=== PATIENT | male | born 1955 | race Caucasian/White ===

== ENCOUNTER 2016-10-31 19:59 | Inpatient (IN) | payer MEDICARE, MEDICAID ==
[~2016-10-31] VITALS: Ht 177.8 cm; Wt 77.3 kg
[~2016-10-31 19:59] MED LIST: CLON1 PO; DIVA500T35 PO; INSU100V12 SQ; LISI-661 PO; PALI156D IM; PANT40TA25 PO
[2016-10-31] MEDS ORDERED: FLUPH2.5I IM (20:33)
[2016-10-31] MEDS ORDERED: LORA0.5T2 PO (20:33)
[2016-10-31] MEDS ORDERED: OLAN10TA3 PO (20:33)
[2016-10-31] MEDS ORDERED: HYDR-3965 PO (20:33)
[2016-10-31] MEDS ORDERED: METF500T4 PO (20:33)
[2016-10-31] MEDS ORDERED: DIVA250T25 PO (20:33)
[2016-10-31] MEDS ORDERED: AMLO-512 PO (20:33)
[2016-10-31 20:36] LABS: GLUCOSE COMMENT 1 Doctor Notified; GLUCOSE,POINT OF CARE 419 MG/DL (70-110)
[2016-10-31] MEDS ORDERED: SODIUM CHLORIDE 0.9% 1,000 ML IV ONE (21:15)
[2016-10-31] MEDS ORDERED: INSULIN REGULAR, HUMAN 100 UNITS/ML IVP ONE (21:15)
[2016-10-31 21:35] LABS: BASOPHILS % (AUTO) 0.3 % (0.0-2.0); EOSINOPHILS % (AUTO) 7.8 % (1.0-6.0); HEMATOCRIT 34.5 % (41-53); HEMOGLOBIN 11.3 g/dL (13.5-17.5); LYMPHOCYTES # (AUTO) 1.8 K/uL (1.0-4.8); MEAN CORPUSCULAR HGB CONC 32.7 G/dL (31.0-37.0); MEAN CORPUSCULAR VOLUME 86 fL (80-100); MONOCYTES # (AUTO) 0.6 K/uL (0.1-1.0); MONOCYTES % (AUTO) 9.2 % (2.0-9.0); NEUTROPHILS # (AUTO) 3.5 K/uL (1.8-7.7); NEUTROPHILS % (AUTO) 54.7 % (40.0-70.0); PLATELET COUNT (AUTO) 269 K/uL (150-450); RED BLOOD CELL COUNT(AUTO) 4.02 MIL/uL (4.50-5.90); RED CELL DISTRIBUTION WIDTH 13.2 % (11.5-14.5); WHITE BLOOD COUNT (AUTO) 6.3 K/uL (4.5-11.0)
[2016-10-31 21:45] LABS: ALANINE AMINOTRANSFERASE 37 U/L (12-78); ALBUMIN 3.5 g/dL (3.4-5.0); ANION GAP 8 mmol/L (8-16); ASPARTATE AMINOTRANSFERASE 20 U/L (15-37); BILIRUBIN,TOTAL 0.2 mg/dL (0.1-1.0); CALCIUM, TOTAL 9.3 mg/dL (8.8-10.5); CARBON DIOXIDE 29 mmol/L (22-29); CHLORIDE 100 mmol/L (98-107); CREATININE 1.36 mg/dL (0.60-1.30); GLOMERULAR FILTR. RATE CALC 53 mL/min (>60); POTASSIUM 3.9 mmol/L (3.5-5.1); SODIUM SERUM 137 mmol/L (136-145); TOTAL PROTEIN, SERUM 7.5 g/dL (6.4-8.2); UREA NITROGEN, BLOOD 20 mg/dL (7-18)
[2016-10-31] MEDS ORDERED: ZOLPIDEM TARTRATE 10 MG TABLET PO PRN (22:15)
[2016-10-31] MEDS ORDERED: OMEPRAZOLE 20 MG CAPSULE PO ONE (22:45)
[2016-10-31 22:47] LABS: GLUCOSE,POINT OF CARE 100 MG/DL (70-110)
[2016-10-31] MEDS ORDERED: LORazepam 2 MG/ML VIAL IM ONE (23:30)
[2016-10-31] MEDS ORDERED: HALOPERIDOL LACTATE 5 MG/ML VIAL IM ONE (23:30)
[2016-10-31] MEDS ORDERED: DiphenhydrAMINE HCL 50 MG/ML VIAL IM ONE (23:30)
[2016-11-01 01:07] LABS: GLUCOSE,POINT OF CARE 182 MG/DL (70-110)
[2016-11-01 01:20] VITALS: BP 135/84
[2016-11-01 06:18] LABS: GLUCOSE,POINT OF CARE 274 MG/DL (70-110)
[2016-11-01 08:15] VITALS: BP 121/77
[2016-11-01] MEDS ORDERED: GuaiFENesin/D-METHORPHAN [SUGAR-FREE] 200-20MG/10 ML SYRUP UDCUP PO PRN (09:15)
[2016-11-01] MEDS ORDERED: HydrOXYzine PAMOATE 50 MG CAPSULE PO PRN (09:15)
[2016-11-01] MEDS ORDERED: MAGNESIUM HYDROXIDE SUSPENSION 30 ML UDCUP PO PRN (09:15)
[2016-11-01] MEDS ORDERED: ACETAMINOPHEN 325 MG TABLET PO PRN (09:15)
[2016-11-01] MEDS ORDERED: LOPERAMIDE HCL 2 MG CAPSULE PO PRN (09:15)
[2016-11-01] MEDS ORDERED: PROMETHAZINE HCL 25 MG TABLET PO PRN (09:15)
[2016-11-01] MEDS ORDERED: TUBERCULIN, PURIFIED PROTEIN DERIVATIVE 5 TU/0.1 ML SYG ID ONE (09:15)
[2016-11-01] MEDS ORDERED: MAG HYDROX/AL HYDROX/SIMETH ES 30 ML SUSPENSION UDCUP PO PRN (09:15)
[2016-11-01] MEDS ORDERED: INSULIN ASPART 100 UNITS/ML SQ PRN (09:30)
[2016-11-01] MEDS ORDERED: DEXTROSE 50%-WATER 25 GM/50 ML SYRINGE IVP PRN ×2 (09:30→11:45)
[2016-11-01] MEDS: LORazepam 2 MG TABLET PO PRN (10:22)
[2016-11-01] MEDS: OLANZapine 5 MG RAPDIS TABLET PO PRN (10:23)
[2016-11-01] MEDS ORDERED: DIVA500T35 PO (11:41)
[2016-11-01] MEDS ORDERED: INSULIN ASPART 100 UNITS/ML SQ ONE (11:45)
[2016-11-01 11:58] LABS: GLUCOSE COMMENT 1 Doctor Notified; GLUCOSE,POINT OF CARE 550 MG/DL (70-110)
[2016-11-01 16:09] VITALS: BP 119/79
[2016-11-01] MEDS: INSULIN ASPART 100 UNITS/ML SQ PRN (17:00)
[2016-11-01 17:37] LABS: GLUCOSE,POINT OF CARE 178 MG/DL (70-110)
[2016-11-01] MEDS: THIAMINE HCL 100 MG TABLET PO SCH (18:28)
[2016-11-01] MEDS: PANTOPRAZOLE SODIUM 40 MG DR TABLET PO SCH (18:28)
[2016-11-01] MEDS: MetFORMIN HCL 500 MG TABLET PO SCH (18:28)
[2016-11-01] MEDS: DIVALPROEX SODIUM 500 MG ER TABLET PO SCH (20:46)
[2016-11-01] MEDS ORDERED: OLANZapine 5 MG RAPDIS TABLET PO SCH (21:00)
[2016-11-02 05:42] LABS: GLUCOSE,POINT OF CARE 321 MG/DL (70-110)
[2016-11-02] MEDS: MetFORMIN HCL 500 MG TABLET PO SCH ×2 (06:25→16:52)
[2016-11-02] MEDS: INSULIN ASPART 100 UNITS/ML SQ PRN ×4 (07:02→20:50)
[2016-11-02 07:12] LABS: CHOL/HDL RATIO 3.8 (4.2-7.3)
[2016-11-02 07:16] LABS: HEMOGLOBIN A1C 12.1 % (4.5-6.2)
[2016-11-02] MEDS: THIAMINE HCL 100 MG TABLET PO SCH ×2 (08:53→16:52)
[2016-11-02] MEDS: MULTIVITAMINS WITH MINERALS, THERAPEUTIC TABLET PO SCH (08:53)
[2016-11-02] MEDS: NALTREXONE HCL 50 MG TABLET PO SCH (08:53)
[2016-11-02] MEDS: FOLIC ACID 1 MG TABLET PO SCH (08:53)
[2016-11-02] MEDS: PANTOPRAZOLE SODIUM 40 MG DR TABLET PO SCH ×2 (08:53→16:52)
[2016-11-02] MEDS: AmLODIPine BESYLATE 10 MG TABLET PO SCH (08:53)
[2016-11-02] MEDS: OLANZapine 5 MG RAPDIS TABLET PO PRN ×2 (10:26→14:32)
[2016-11-02] MEDS: LORazepam 2 MG TABLET PO PRN ×2 (10:26→14:32)
[2016-11-02 11:18] LABS: GLUCOSE,POINT OF CARE 200 MG/DL (70-110)
[2016-11-02 17:16] LABS: GLUCOSE COMMENT 1 Received Meds; GLUCOSE,POINT OF CARE 307 MG/DL (70-110)
[2016-11-02 18:38] VITALS: BP 145/81
[2016-11-02] MEDS: DIVALPROEX SODIUM 500 MG ER TABLET PO SCH (20:38)
[2016-11-02] MEDS: OLANZapine 10 MG RAPDIS TABLET PO SCH (20:38)
[2016-11-03 05:30] VITALS: BP 140/90
[2016-11-03 05:44] LABS: GLUCOSE,POINT OF CARE 256 MG/DL (70-110)
[2016-11-03] MEDS: MetFORMIN HCL 500 MG TABLET PO SCH ×2 (06:46→16:35)
[2016-11-03] MEDS: INSULIN ASPART 100 UNITS/ML SQ PRN ×4 (06:47→21:01)
[2016-11-03 07:38] LABS: GLUCOSE,POINT OF CARE 251 MG/DL (70-110)
[2016-11-03 08:15] VITALS: BP 145/74
[2016-11-03] MEDS: MULTIVITAMINS WITH MINERALS, THERAPEUTIC TABLET PO SCH (09:11)
[2016-11-03] MEDS: THIAMINE HCL 100 MG TABLET PO SCH ×2 (09:11→16:35)
[2016-11-03] MEDS: LORazepam 2 MG TABLET PO PRN ×2 (09:11→15:50)
[2016-11-03] MEDS: PANTOPRAZOLE SODIUM 40 MG DR TABLET PO SCH ×2 (09:12→16:35)
[2016-11-03] MEDS: AmLODIPine BESYLATE 10 MG TABLET PO SCH (09:12)
[2016-11-03] MEDS: FOLIC ACID 1 MG TABLET PO SCH (09:12)
[2016-11-03] MEDS: NALTREXONE HCL 50 MG TABLET PO SCH (09:12)
[2016-11-03 11:43] VITALS: BP 135/72
[2016-11-03 11:59] LABS: GLUCOSE,POINT OF CARE 169 MG/DL (70-110)
[2016-11-03] MEDS ORDERED: DIVA500T52 PO (15:33)
[2016-11-03] MEDS ORDERED: OLAN10TA22 PO (15:33)
[2016-11-03] MEDS ORDERED: NALT50 PO (15:33)
[2016-11-03 16:47] VITALS: BP 145/73
[2016-11-03 17:32] LABS: GLUCOSE COMMENT 1 Received Meds; GLUCOSE,POINT OF CARE 282 MG/DL (70-110)
[2016-11-03 20:46] LABS: GLUCOSE COMMENT 1 Received Meds; GLUCOSE,POINT OF CARE 229 MG/DL (70-110)
[2016-11-03] MEDS: DIVALPROEX SODIUM 500 MG ER TABLET PO SCH (20:58)
[2016-11-03] MEDS: OLANZapine 10 MG RAPDIS TABLET PO SCH (20:58)
[2016-11-04] MEDS: MetFORMIN HCL 500 MG TABLET PO SCH (06:32)
[2016-11-04] MEDS: INSULIN ASPART 100 UNITS/ML SQ PRN ×2 (06:51→11:39)
[2016-11-04 07:04] LABS: GLUCOSE,POINT OF CARE 248 MG/DL (70-110)
[2016-11-04] MEDS: AmLODIPine BESYLATE 10 MG TABLET PO SCH (08:11)
[2016-11-04] MEDS: PANTOPRAZOLE SODIUM 40 MG DR TABLET PO SCH (08:11)
[2016-11-04] MEDS: NALTREXONE HCL 50 MG TABLET PO SCH (08:11)
[2016-11-04] MEDS: THIAMINE HCL 100 MG TABLET PO SCH (08:12)
[2016-11-04] MEDS: MULTIVITAMINS WITH MINERALS, THERAPEUTIC TABLET PO SCH (08:12)
[2016-11-04] MEDS: FOLIC ACID 1 MG TABLET PO SCH (08:12)
[2016-11-04 08:30] VITALS: BP 150/96
[2016-11-04] MEDS ORDERED: LISINOPRIL 5 MG TABLET PO SCH (09:00)
[2016-11-04] MEDS ORDERED: LISI-660 PO (09:12)
[2016-11-04 13:53] LABS: GLUCOSE,POINT OF CARE 215 MG/DL (70-110)
[2016-11-05] MEDS ORDERED: SitaGLIPtin PHOSPHATE 25 MG TABLET PO SCH (09:00)
[2016-11-05] MEDS ORDERED: LinaGLIPtin 5 MG TABLET PO SCH (09:00)
== END 2016-11-04 13:45 | disposition home or self-care (01) | DRG 885 ==
LOC: EMS 20:01 → 3EX 23:46
PROVIDERS: ADMIT Psychiatry & Neurology Psychiatry; ATTEND Psychiatry & Neurology Psychiatry
PROC: HZ51ZZZ Individual Psychotherapy for Substance Abuse Treatment, Behavioral (ICD-10-PCS; principal; 2016-11-01)
DX: F25.9 Schizoaffective disorder, unspecified (principal); R45.851 Suicidal ideations; F31.9 Bipolar disorder, unspecified; K21.9 Gastro-esophageal reflux disease without esophagitis; F17.210 Nicotine dependence, cigarettes, uncomplicated; E11.65 Type 2 diabetes mellitus with hyperglycemia; E11.22 Type 2 diabetes mellitus with diabetic chronic kidney disease; N18.9 Chronic kidney disease, unspecified; I12.9 Hypertensive chronic kidney disease with stage 1 through stage 4 chronic kidney disease, or unspecified chronic kidney disease; M19.90 Unspecified osteoarthritis, unspecified site; D64.9 Anemia, unspecified; Z79.899 Other long term (current) drug therapy; Z91.19 Patient's noncompliance with other medical treatment and regimen; Z79.84 Long term (current) use of oral hypoglycemic drugs; Z88.0 Allergy status to penicillin; Z82.49 Family history of ischemic heart disease and other diseases of the circulatory system
CPT/HCPCS: 82948; 82962; 83036; 96361; 96372; 96374; 99285; 99406; G0480; J1200; J1630; J1815; J2060; J7030

== ENCOUNTER 2016-11-22 12:46 | Inpatient (IN) | payer MEDICARE, MEDICAID ==
[~2016-11-22] VITALS: Ht 172.7 cm; Wt 72.2 kg
[~2016-11-22 12:46] MED LIST changes: +AMLO-512 PO; -CLON1 PO; +DIVA500T52 PO; -INSU100V12 SQ; +LISI-660 PO; -LISI-661 PO; +METF500T4 PO; +NALT50 PO; +OLAN10TA22 PO; -PALI156D IM
[2016-11-22 13:12] LABS: GLUCOSE,POINT OF CARE 373 MG/DL (70-110)
[2016-11-22] MEDS ORDERED: DiphenhydrAMINE HCL 50 MG/ML VIAL IM ONE (14:15)
[2016-11-22] MEDS ORDERED: LORazepam 2 MG/ML VIAL IM ONE (14:15)
[2016-11-22] MEDS ORDERED: HALOPERIDOL LACTATE 5 MG/ML VIAL IM ONE (14:15)
[2016-11-22] MEDS ORDERED: ACETAMINOPHEN 325 MG TABLET PO PRN ×2 (14:45→15:30)
[2016-11-22] MEDS ORDERED: LOPERAMIDE HCL 2 MG CAPSULE PO PRN (14:45)
[2016-11-22] MEDS ORDERED: MAGNESIUM HYDROXIDE SUSPENSION 30 ML UDCUP PO PRN (14:45)
[2016-11-22] MEDS ORDERED: MAG HYDROX/AL HYDROX/SIMETH ES 30 ML SUSPENSION UDCUP PO PRN (14:45)
[2016-11-22 14:50] LABS: BASOPHILS % (AUTO) 0.3 % (0.0-2.0); EOSINOPHILS % (AUTO) 2.1 % (1.0-6.0); HEMATOCRIT 37.4 % (41-53); LYMPHOCYTES # (AUTO) 1.4 K/uL (1.0-4.8); LYMPHOCYTES % (AUTO) 22.1 % (22.0-44.0); MEAN CORPUSCULAR HEMOGLOBIN 27.6 pg (26.0-34.0); MEAN CORPUSCULAR HGB CONC 32.1 G/dL (31.0-37.0); MEAN CORPUSCULAR VOLUME 86 fL (80-100); MONOCYTES # (AUTO) 0.4 K/uL (0.1-1.0); MONOCYTES % (AUTO) 6.2 % (2.0-9.0); NEUTROPHILS # (AUTO) 4.2 K/uL (1.8-7.7); NEUTROPHILS % (AUTO) 69.3 % (40.0-70.0); PLATELET COUNT (AUTO) 242 K/uL (150-450); RED BLOOD CELL COUNT(AUTO) 4.36 MIL/uL (4.50-5.90); RED CELL DISTRIBUTION WIDTH 13.8 % (11.5-14.5); WHITE BLOOD COUNT (AUTO) 6.1 K/uL (4.5-11.0)
[2016-11-22 14:59] LABS: ANION GAP 9 mmol/L (8-16); CARBON DIOXIDE 27 mmol/L (22-29); CHLORIDE 99 mmol/L (98-107); CREATININE 1.34 mg/dL (0.60-1.30); GLOMERULAR FILTR. RATE CALC 54 mL/min (>60); POTASSIUM 3.7 mmol/L (3.5-5.1); SODIUM SERUM 135 mmol/L (136-145); UREA NITROGEN, BLOOD 17 mg/dL (7-18)
[2016-11-22 15:04] LABS: ALANINE AMINOTRANSFERASE 36 U/L (12-78); ALBUMIN 3.7 g/dL (3.4-5.0); ASPARTATE AMINOTRANSFERASE 24 U/L (15-37); BILIRUBIN,TOTAL 0.4 mg/dL (0.1-1.0); TOTAL PROTEIN, SERUM 7.3 g/dL (6.4-8.2)
[2016-11-22] MEDS ORDERED: ONDANSETRON HCL 4 MG/2 ML VIAL IVP PRN (15:30)
[2016-11-22 16:00] LABS: GLUCOSE,POINT OF CARE 288 MG/DL (70-110)
[2016-11-22] MEDS ORDERED: PNEUMOCOCCAL VACCINE POLYVALENT 0.5 ML VIAL [PPSV23] IM ONE (16:30)
[2016-11-22 17:16] VITALS: BP 148/93
[2016-11-22] MEDS ORDERED: DEXTROSE 50%-WATER 25 GM/50 ML SYRINGE IVP PRN (20:00)
[2016-11-22] MEDS ORDERED: OLANZapine 5 MG RAPDIS TABLET PO SCH (21:00)
[2016-11-22] MEDS: DIVALPROEX SODIUM 500 MG ER TABLET PO SCH (21:01)
[2016-11-22 21:12] LABS: GLUCOSE COMMENT 1 Received Meds; GLUCOSE,POINT OF CARE 227 MG/DL (70-110)
[2016-11-22] MEDS: INSULIN ASPART 100 UNITS/ML SQ PRN (21:16)
[2016-11-22 22:57] LABS: APPEARANCE,URINE CLEAR (CLEAR); GLUCOSE, URINE (UA) >=1000 mg/dL (NEGATIVE); KETONES,URINE TRACE mg/dL (NEGATIVE); LEUKOCYTE ESTERASE ,URINE NEGATIVE (NEGATIVE); OCCULT BLOOD,URINE NEGATIVE (NEGATIVE); PROTEIN,URINE NEGATIVE (NEGATIVE)
[2016-11-22 23:00] LABS: ADD UA MICROSCOPIC YES
[2016-11-22 23:07] LABS: RBC,URINE 0-2 /HPF (0-2); SQUAMOUS EPITHELIAL CELL,UR Rare /LPF (None Seen)
[2016-11-23 05:52] LABS: GLUCOSE,POINT OF CARE 267 MG/DL (70-110)
[2016-11-23] MEDS: INSULIN ASPART 100 UNITS/ML SQ PRN ×4 (06:52→21:08)
[2016-11-23] MEDS: MetFORMIN HCL 500 MG TABLET PO SCH ×2 (06:54→16:21)
[2016-11-23 07:12] LABS: BASOPHILS % (AUTO) 0.3 % (0.0-2.0); EOSINOPHILS % (AUTO) 3.9 % (1.0-6.0); HEMATOCRIT 38.1 % (41-53); HEMOGLOBIN 12.2 g/dL (13.5-17.5); LYMPHOCYTES # (AUTO) 1.7 K/uL (1.0-4.8); LYMPHOCYTES % (AUTO) 27.5 % (22.0-44.0); MEAN CORPUSCULAR HEMOGLOBIN 27.6 pg (26.0-34.0); MEAN CORPUSCULAR HGB CONC 32.1 G/dL (31.0-37.0); MEAN CORPUSCULAR VOLUME 86 fL (80-100); MONOCYTES # (AUTO) 0.4 K/uL (0.1-1.0); MONOCYTES % (AUTO) 6.2 % (2.0-9.0); NEUTROPHILS # (AUTO) 3.8 K/uL (1.8-7.7); NEUTROPHILS % (AUTO) 62.1 % (40.0-70.0); PLATELET COUNT (AUTO) 224 K/uL (150-450); RED BLOOD CELL COUNT(AUTO) 4.43 MIL/uL (4.50-5.90); RED CELL DISTRIBUTION WIDTH 13.5 % (11.5-14.5); WHITE BLOOD COUNT (AUTO) 6.1 K/uL (4.5-11.0)
[2016-11-23 07:37] LABS: ALANINE AMINOTRANSFERASE 37 U/L (12-78); ALBUMIN 3.5 g/dL (3.4-5.0); ANION GAP 12 mmol/L (8-16); ASPARTATE AMINOTRANSFERASE 34 U/L (15-37); BILIRUBIN,TOTAL 0.6 mg/dL (0.1-1.0); CALCIUM, TOTAL 9.1 mg/dL (8.8-10.5); CARBON DIOXIDE 24 mmol/L (22-29); CHLORIDE 100 mmol/L (98-107); CREATININE 1.28 mg/dL (0.60-1.30); GLOMERULAR FILTR. RATE CALC 57 mL/min (>60); POTASSIUM 3.6 mmol/L (3.5-5.1); SODIUM SERUM 136 mmol/L (136-145); TOTAL PROTEIN, SERUM 7.2 g/dL (6.4-8.2); UREA NITROGEN, BLOOD 18 mg/dL (7-18)
[2016-11-23 07:40] LABS: VALPROIC ACID < 3 mcg/mL (50-100)
[2016-11-23] MEDS: LISINOPRIL 5 MG TABLET PO SCH (08:11)
[2016-11-23] MEDS: PANTOPRAZOLE SODIUM 40 MG DR TABLET PO SCH ×2 (08:12→16:21)
[2016-11-23] MEDS: AmLODIPine BESYLATE 10 MG TABLET PO SCH (08:12)
[2016-11-23 08:17] VITALS: BP 153/101
[2016-11-23] MEDS: LORazepam 2 MG TABLET PO PRN ×2 (11:07→15:12)
[2016-11-23] MEDS: OLANZapine 5 MG RAPDIS TABLET PO PRN ×2 (11:08→15:12)
[2016-11-23 11:11] LABS: GLUCOSE,POINT OF CARE 224 MG/DL (70-110)
[2016-11-23 16:37] VITALS: BP 130/79
[2016-11-23 16:57] LABS: GLUCOSE,POINT OF CARE 215 MG/DL (70-110)
[2016-11-23] MEDS ORDERED: CloNIDine HCL 0.1 MG TABLET PO PRN (17:30)
[2016-11-23] MEDS: OLANZapine 10 MG RAPDIS TABLET PO SCH (20:27)
[2016-11-23] MEDS: DIVALPROEX SODIUM 500 MG ER TABLET PO SCH (20:27)
[2016-11-23 20:52] LABS: GLUCOSE,POINT OF CARE 180 MG/DL (70-110)
[2016-11-24 05:52] LABS: GLUCOSE,POINT OF CARE 266 MG/DL (70-110)
[2016-11-24] MEDS: MetFORMIN HCL 500 MG TABLET PO SCH ×2 (07:13→17:53)
[2016-11-24] MEDS: INSULIN ASPART 100 UNITS/ML SQ PRN ×3 (07:14→18:16)
[2016-11-24] MEDS: NALTREXONE HCL 50 MG TABLET PO SCH (08:04)
[2016-11-24] MEDS: LISINOPRIL 5 MG TABLET PO SCH (08:04)
[2016-11-24] MEDS: AmLODIPine BESYLATE 10 MG TABLET PO SCH (08:04)
[2016-11-24] MEDS: PANTOPRAZOLE SODIUM 40 MG DR TABLET PO SCH ×2 (08:04→17:53)
[2016-11-24 08:15] VITALS: BP 124/83
[2016-11-24] MEDS: LORazepam 2 MG TABLET PO PRN (08:54)
[2016-11-24] MEDS: OLANZapine 5 MG RAPDIS TABLET PO PRN (08:54)
[2016-11-24] MEDS ORDERED: LORazepam 2 MG/ML VIAL IM ONE (10:00)
[2016-11-24] MEDS ORDERED: DiphenhydrAMINE HCL 50 MG/ML VIAL IM ONE (10:00)
[2016-11-24 15:31] LABS: GLUCOSE,POINT OF CARE 169 MG/DL (70-110)
[2016-11-24 17:27] LABS: GLUCOSE COMMENT 1 Received Meds; GLUCOSE,POINT OF CARE 160 MG/DL (70-110)
[2016-11-24] MEDS: BACITRACIN 28.4 GM OINTMENT TP SCH (18:01)
[2016-11-24 20:37] LABS: GLUCOSE,POINT OF CARE 154 MG/DL (70-110)
[2016-11-24] MEDS: DIVALPROEX SODIUM 500 MG ER TABLET PO SCH (21:00)
[2016-11-24] MEDS: OLANZapine 10 MG RAPDIS TABLET PO SCH (21:00)
[2016-11-25 06:07] LABS: GLUCOSE,POINT OF CARE 189 MG/DL (70-110)
[2016-11-25] MEDS: MetFORMIN HCL 500 MG TABLET PO SCH ×2 (06:50→18:52)
[2016-11-25] MEDS: INSULIN ASPART 100 UNITS/ML SQ PRN ×3 (06:56→18:47)
[2016-11-25] MEDS: LISINOPRIL 5 MG TABLET PO SCH (08:16)
[2016-11-25] MEDS: PANTOPRAZOLE SODIUM 40 MG DR TABLET PO SCH ×2 (08:16→18:52)
[2016-11-25] MEDS: NALTREXONE HCL 50 MG TABLET PO SCH (08:16)
[2016-11-25] MEDS: LinaGLIPtin 5 MG TABLET PO SCH (08:16)
[2016-11-25] MEDS: AmLODIPine BESYLATE 10 MG TABLET PO SCH (08:16)
[2016-11-25] MEDS: LORazepam 2 MG TABLET PO PRN ×2 (08:18→13:15)
[2016-11-25 08:30] VITALS: BP 120/76
[2016-11-25] MEDS: BACITRACIN 28.4 GM OINTMENT TP SCH ×2 (09:00→18:52)
[2016-11-25 11:12] LABS: GLUCOSE COMMENT 1 Received Meds; GLUCOSE,POINT OF CARE 222 MG/DL (70-110)
[2016-11-25 19:15] VITALS: BP 124/71
[2016-11-25 19:31] LABS: GLUCOSE,POINT OF CARE 279 MG/DL (70-110)
[2016-11-25] MEDS: DIVALPROEX SODIUM 500 MG ER TABLET PO SCH (21:01)
[2016-11-25] MEDS: OLANZapine 10 MG RAPDIS TABLET PO SCH (21:01)
[2016-11-25 22:56] LABS: GLUCOSE,POINT OF CARE 126 MG/DL (70-110)
[2016-11-25] MEDS: ZOLPIDEM TARTRATE 10 MG TABLET PO PRN (23:21)
[2016-11-26 01:20] VITALS: BP 141/79
[2016-11-26 06:17] LABS: GLUCOSE COMMENT 1 Received Meds; GLUCOSE,POINT OF CARE 183 MG/DL (70-110)
[2016-11-26] MEDS: MetFORMIN HCL 500 MG TABLET PO SCH ×2 (06:32→16:43)
[2016-11-26] MEDS: INSULIN ASPART 100 UNITS/ML SQ PRN ×4 (06:49→21:41)
[2016-11-26] MEDS: PANTOPRAZOLE SODIUM 40 MG DR TABLET PO SCH ×2 (07:37→16:43)
[2016-11-26] MEDS: AmLODIPine BESYLATE 10 MG TABLET PO SCH (07:37)
[2016-11-26] MEDS: NALTREXONE HCL 50 MG TABLET PO SCH (07:37)
[2016-11-26] MEDS: LISINOPRIL 5 MG TABLET PO SCH (07:37)
[2016-11-26] MEDS: LinaGLIPtin 5 MG TABLET PO SCH (07:38)
[2016-11-26] MEDS: BACITRACIN 28.4 GM OINTMENT TP SCH ×2 (07:38→16:42)
[2016-11-26 08:01] VITALS: BP 128/69
[2016-11-26 11:17] LABS: GLUCOSE,POINT OF CARE 211 MG/DL (70-110)
[2016-11-26] MEDS: LORazepam 2 MG TABLET PO PRN (13:11)
[2016-11-26 17:18] VITALS: BP 115/78
[2016-11-26 17:27] LABS: GLUCOSE,POINT OF CARE 142 MG/DL (70-110)
[2016-11-26] MEDS: OLANZapine 10 MG RAPDIS TABLET PO SCH (20:54)
[2016-11-26] MEDS: DIVALPROEX SODIUM 500 MG ER TABLET PO SCH (20:54)
[2016-11-26 21:47] LABS: GLUCOSE COMMENT 1 FASTING; GLUCOSE,POINT OF CARE 174 MG/DL (70-110)
[2016-11-27 00:24] VITALS: BP 127/91
[2016-11-27] MEDS: ZOLPIDEM TARTRATE 10 MG TABLET PO PRN (01:01)
[2016-11-27] MEDS: MetFORMIN HCL 500 MG TABLET PO SCH ×2 (06:23→17:40)
[2016-11-27 06:42] LABS: GLUCOSE COMMENT 1 Received Meds; GLUCOSE,POINT OF CARE 170 MG/DL (70-110)
[2016-11-27] MEDS: INSULIN ASPART 100 UNITS/ML SQ PRN ×4 (07:11→20:38)
[2016-11-27] MEDS: NALTREXONE HCL 50 MG TABLET PO SCH (08:03)
[2016-11-27] MEDS: LinaGLIPtin 5 MG TABLET PO SCH (08:04)
[2016-11-27] MEDS: AmLODIPine BESYLATE 10 MG TABLET PO SCH (08:04)
[2016-11-27] MEDS: PANTOPRAZOLE SODIUM 40 MG DR TABLET PO SCH ×2 (08:04→17:08)
[2016-11-27] MEDS: LISINOPRIL 5 MG TABLET PO SCH (08:04)
[2016-11-27] MEDS: LORazepam 2 MG TABLET PO PRN (08:12)
[2016-11-27] MEDS: OLANZapine 5 MG RAPDIS TABLET PO PRN (08:12)
[2016-11-27] MEDS: BACITRACIN 28.4 GM OINTMENT TP SCH ×2 (08:13→17:08)
[2016-11-27 08:31] VITALS: BP 146/98
[2016-11-27 11:11] LABS: GLUCOSE,POINT OF CARE 162 MG/DL (70-110)
[2016-11-27 17:01] VITALS: BP 137/93
[2016-11-27 17:47] LABS: GLUCOSE,POINT OF CARE 201 MG/DL (70-110)
[2016-11-27] MEDS: OLANZapine 10 MG RAPDIS TABLET PO SCH (20:23)
[2016-11-27] MEDS: DIVALPROEX SODIUM 500 MG ER TABLET PO SCH (20:23)
[2016-11-27 20:32] LABS: GLUCOSE COMMENT 1 Received Meds; GLUCOSE,POINT OF CARE 156 MG/DL (70-110)
[2016-11-28 05:57] LABS: GLUCOSE,POINT OF CARE 142 MG/DL (70-110)
[2016-11-28 06:16] VITALS: BP 130/77
[2016-11-28] MEDS: MetFORMIN HCL 500 MG TABLET PO SCH ×2 (06:36→17:32)
[2016-11-28] MEDS: INSULIN ASPART 100 UNITS/ML SQ PRN ×4 (07:08→20:50)
[2016-11-28 08:01] VITALS: BP 163/84
[2016-11-28] MEDS: PANTOPRAZOLE SODIUM 40 MG DR TABLET PO SCH ×2 (08:02→16:01)
[2016-11-28] MEDS: LISINOPRIL 5 MG TABLET PO SCH (08:02)
[2016-11-28] MEDS: AmLODIPine BESYLATE 10 MG TABLET PO SCH (08:02)
[2016-11-28] MEDS: BACITRACIN 28.4 GM OINTMENT TP SCH ×2 (08:02→16:00)
[2016-11-28] MEDS: LinaGLIPtin 5 MG TABLET PO SCH (08:02)
[2016-11-28] MEDS: DIVALPROEX SODIUM 500 MG ER TABLET PO SCH ×2 (08:02→20:08)
[2016-11-28] MEDS: NALTREXONE HCL 50 MG TABLET PO SCH (08:02)
[2016-11-28] MEDS: OLANZapine 5 MG RAPDIS TABLET PO SCH (08:02)
[2016-11-28 11:27] LABS: GLUCOSE,POINT OF CARE 147 MG/DL (70-110)
[2016-11-28] MEDS: OLANZapine 5 MG RAPDIS TABLET PO PRN (16:01)
[2016-11-28 16:08] LABS: GLUCOSE COMMENT 1 Received Meds; GLUCOSE,POINT OF CARE 184 MG/DL (70-110)
[2016-11-28 16:28] VITALS: BP 117/84
[2016-11-28] MEDS: OLANZapine 10 MG RAPDIS TABLET PO SCH (20:08)
[2016-11-28 20:27] LABS: GLUCOSE COMMENT 1 Received Meds; GLUCOSE,POINT OF CARE 157 MG/DL (70-110)
[2016-11-29] MEDS: ZOLPIDEM TARTRATE 10 MG TABLET PO PRN (00:36)
[2016-11-29 00:43] VITALS: BP 136/77
[2016-11-29 05:28] LABS: GLUCOSE COMMENT 1 Received Meds; GLUCOSE,POINT OF CARE 151 MG/DL (70-110)
[2016-11-29] MEDS: MetFORMIN HCL 500 MG TABLET PO SCH ×2 (07:28→18:39)
[2016-11-29] MEDS: INSULIN ASPART 100 UNITS/ML SQ PRN ×3 (07:30→21:27)
[2016-11-29 08:15] VITALS: BP 139/70
[2016-11-29] MEDS: NALTREXONE HCL 50 MG TABLET PO SCH (08:25)
[2016-11-29] MEDS: AmLODIPine BESYLATE 10 MG TABLET PO SCH (08:25)
[2016-11-29] MEDS: DIVALPROEX SODIUM 500 MG ER TABLET PO SCH ×2 (08:25→20:53)
[2016-11-29] MEDS: LISINOPRIL 5 MG TABLET PO SCH (08:25)
[2016-11-29] MEDS: LinaGLIPtin 5 MG TABLET PO SCH (08:25)
[2016-11-29] MEDS: PANTOPRAZOLE SODIUM 40 MG DR TABLET PO SCH ×2 (08:25→16:18)
[2016-11-29] MEDS: OLANZapine 5 MG RAPDIS TABLET PO SCH (08:26)
[2016-11-29] MEDS: LORazepam 2 MG TABLET PO PRN (10:12)
[2016-11-29] MEDS: BACITRACIN 28.4 GM OINTMENT TP SCH ×2 (10:14→16:18)
[2016-11-29 11:43] LABS: GLUCOSE,POINT OF CARE 306 MG/DL (70-110)
[2016-11-29] MEDS ORDERED: HALOPERIDOL LACTATE 5 MG/ML VIAL IM ONE (13:15)
[2016-11-29] MEDS ORDERED: DiphenhydrAMINE HCL 50 MG/ML VIAL IM ONE (13:15)
[2016-11-29] MEDS ORDERED: LORazepam 2 MG/ML VIAL IM ONE (13:15)
[2016-11-29 16:07] LABS: GLUCOSE COMMENT 1 Received Meds; GLUCOSE,POINT OF CARE 71 MG/DL (70-110)
[2016-11-29 16:30] VITALS: BP 124/72
[2016-11-29] MEDS ORDERED: DIVA500T52 PO ×2 (17:37)
[2016-11-29] MEDS ORDERED: OLAN10TA22 PO (17:37)
[2016-11-29] MEDS ORDERED: NALT50 PO (17:37)
[2016-11-29] MEDS: OLANZapine 10 MG RAPDIS TABLET PO SCH (20:53)
[2016-11-29 21:08] LABS: GLUCOSE COMMENT 1 Received Meds; GLUCOSE,POINT OF CARE 233 MG/DL (70-110)
[2016-11-30 03:25] VITALS: BP 132/91
[2016-11-30] MEDS: LORazepam 2 MG TABLET PO PRN ×2 (03:28→08:37)
[2016-11-30 05:33] LABS: GLUCOSE COMMENT 1 Received Meds; GLUCOSE,POINT OF CARE 145 MG/DL (70-110)
[2016-11-30] MEDS: INSULIN ASPART 100 UNITS/ML SQ PRN (06:58)
[2016-11-30] MEDS: MetFORMIN HCL 500 MG TABLET PO SCH (07:17)
[2016-11-30 08:30] VITALS: BP 125/74
[2016-11-30] MEDS: AmLODIPine BESYLATE 10 MG TABLET PO SCH (08:37)
[2016-11-30] MEDS: OLANZapine 5 MG RAPDIS TABLET PO SCH (08:37)
[2016-11-30] MEDS: PANTOPRAZOLE SODIUM 40 MG DR TABLET PO SCH ×2 (08:37→16:49)
[2016-11-30] MEDS: DIVALPROEX SODIUM 500 MG ER TABLET PO SCH (08:37)
[2016-11-30] MEDS: OLANZapine 5 MG RAPDIS TABLET PO PRN (08:38)
[2016-11-30] MEDS: LISINOPRIL 5 MG TABLET PO SCH (08:39)
[2016-11-30] MEDS: NALTREXONE HCL 50 MG TABLET PO SCH (08:39)
[2016-11-30] MEDS: LinaGLIPtin 5 MG TABLET PO SCH (08:40)
[2016-11-30] MEDS: BACITRACIN 28.4 GM OINTMENT TP SCH ×2 (08:40→16:50)
[2016-11-30] MEDS ORDERED: LISI-660 PO (08:58)
[2016-11-30] MEDS ORDERED: LINA5TAB PO (09:02)
[2016-11-30 11:28] LABS: GLUCOSE,POINT OF CARE 136 MG/DL (70-110)
[2016-11-30 17:08] LABS: GLUCOSE COMMENT 1 Received Meds; GLUCOSE,POINT OF CARE 230 MG/DL (70-110)
== END 2016-11-30 17:30 | disposition home or self-care (01) | DRG 885 ==
LOC: EMS 12:49 → EEVIPCON 12:49 → 3EX 15:47
PROVIDERS: ADMIT Psychiatry & Neurology Psychiatry; ATTEND Psychiatry & Neurology Psychiatry
DX: F25.9 Schizoaffective disorder, unspecified (principal); R45.851 Suicidal ideations; D64.9 Anemia, unspecified; E11.65 Type 2 diabetes mellitus with hyperglycemia; I10 Essential (primary) hypertension; I25.10 Atherosclerotic heart disease of native coronary artery without angina pectoris; J44.9 Chronic obstructive pulmonary disease, unspecified; K21.9 Gastro-esophageal reflux disease without esophagitis; F12.21 Cannabis dependence, in remission; F15.21 Other stimulant dependence, in remission; R82.4 Acetonuria; L21.9 Seborrheic dermatitis, unspecified; F31.60 Bipolar disorder, current episode mixed, unspecified; Z22.322 Carrier or suspected carrier of Methicillin resistant Staphylococcus aureus; Z79.84 Long term (current) use of oral hypoglycemic drugs; Z88.0 Allergy status to penicillin; Z91.19 Patient's noncompliance with other medical treatment and regimen; Z79.899 Other long term (current) drug therapy; Z72.89 Other problems related to lifestyle; Z87.891 Personal history of nicotine dependence; Z80.1 Family history of malignant neoplasm of trachea, bronchus and lung; Z82.5 Family history of asthma and other chronic lower respiratory diseases; Z83.3 Family history of diabetes mellitus; Z82.49 Family history of ischemic heart disease and other diseases of the circulatory system; Z81.1 Family history of alcohol abuse and dependence
CPT/HCPCS: 82962; 83036; 87081; 96372; 99285; G0480; J1200; J1630; J2060; J3230

== ENCOUNTER 2017-07-31 16:43 | Inpatient (IN) | payer MEDICARE, MEDICAID ==
[~2017-07-31] VITALS: Ht 177.8 cm; Wt 72.5 kg
[~2017-07-31 16:43] MED LIST changes: -DIVA500T35 PO; +LINA5TAB PO; -NALT50 PO; +NALT50TA6 PO
[2017-07-31] MEDS ORDERED: DiphenhydrAMINE HCL 50 MG/ML VIAL IM ONE (17:30)
[2017-07-31] MEDS ORDERED: LORazepam 2 MG/ML VIAL IM ONE (17:30)
[2017-07-31 17:33] LABS: BASOPHILS # (AUTO) 0.01 K/uL (0.00-0.20); BASOPHILS % (AUTO) 0.1 % (0.0-2.0); EOSINOPHILS # (AUTO) 0.35 K/uL (0.00-0.70); EOSINOPHILS % (AUTO) 6.15 % (1.0-6.0); HEMATOCRIT 29.5 % (41-53); HEMOGLOBIN 9.2 g/dL (13.5-17.5); LYMPHOCYTES # (AUTO) 2.2 K/uL (1.0-4.8); LYMPHOCYTES % (AUTO) 38.6 % (22.0-44.0); MEAN CORPUSCULAR HEMOGLOBIN 23.9 pg (26.0-34.0); MEAN CORPUSCULAR HGB CONC 31.1 G/dL (31.0-37.0); MEAN CORPUSCULAR VOLUME 77 fL (80-100); MONOCYTES # (AUTO) 0.4 K/uL (0.1-1.0); NEUTROPHILS # (AUTO) 2.8 K/uL (1.8-7.7); NEUTROPHILS % (AUTO) 48.1 % (40.0-70.0); PLATELET COUNT (AUTO) 194 K/uL (150-450); RED BLOOD CELL COUNT(AUTO) 3.85 MIL/uL (4.50-5.90); RED CELL DISTRIBUTION WIDTH 17.1 % (11.5-14.5)
[2017-07-31 17:34] LABS: ANION GAP 10 mmol/L (8-16); CALCIUM, TOTAL 9.2 mg/dL (8.8-10.5); CARBON DIOXIDE 25 mmol/L (22-29); CHLORIDE 99 mmol/L (98-107); CREATININE 1.57 mg/dL (0.60-1.30); GLOMERULAR FILTR. RATE CALC 45 mL/min (>60); GLUCOSE,RANDOM 131 mg/dL (70-110); POTASSIUM 3.8 mmol/L (3.5-5.1); SODIUM SERUM 134 mmol/L (136-145); UREA NITROGEN, BLOOD 18 mg/dL (7-18)
[2017-07-31 17:40] LABS: ALANINE AMINOTRANSFERASE 22 U/L (12-78); ALBUMIN 3.5 g/dL (3.4-5.0); ALKALINE PHOSPHATASE 86 U/L (46-116); ASPARTATE AMINOTRANSFERASE 14 U/L (15-37); BILIRUBIN,TOTAL 0.1 mg/dL (0.1-1.0); TOTAL PROTEIN, SERUM 7.5 g/dL (6.4-8.2); VALPROIC ACID 54 mcg/mL (50-100)
[2017-07-31] MEDS ORDERED: HALOPERIDOL 5 MG TABLET PO ONE (17:45)
[2017-07-31] MEDS ORDERED: DiphenhydrAMINE HCL 25 MG CAPSULE PO ONE (17:45)
[2017-07-31] MEDS ORDERED: LORazepam 2 MG TABLET PO ONE ×2 (17:45→21:30)
[2017-07-31 18:32] LABS: AMPHET/METH SCREEN,URINE NEGATIVE (NEGATIVE); BARBITURATE SCREEN, URINE NEGATIVE (NEGATIVE); BENZODIAZEPINES SCREEN,URINE NEGATIVE (NEGATIVE); CANNABINOID SCREEN,URINE NEGATIVE (NEGATIVE); COCAINE SCREEN,URINE NEGATIVE (NEGATIVE); METHADONE SCREEN, URINE NEGATIVE (NEGATIVE); OPIATE SCREEN,URINE NEGATIVE (NEGATIVE)
[2017-07-31 18:33] LABS: PHENCYCLIDINE SCREEN,URINE NEGATIVE (NEGATIVE)
[2017-07-31] MEDS: DIVALPROEX SODIUM 500 MG ER TABLET PO SCH (20:50)
[2017-07-31] MEDS: OLANZapine 10 MG RAPDIS TABLET PO SCH (20:50)
[2017-07-31] MEDS: ZOLPIDEM TARTRATE 10 MG TABLET PO PRN (21:22)
[2017-08-01 08:55] LABS: CHOL/HDL RATIO 2.8 (4.2-7.3)
[2017-08-01] MEDS: NALTREXONE HCL 50 MG TABLET PO SCH (09:12)
[2017-08-01] MEDS: OLANZapine 5 MG RAPDIS TABLET PO PRN ×2 (09:20→16:08)
[2017-08-01] MEDS: LORazepam 2 MG TABLET PO PRN ×2 (10:00→16:08)
[2017-08-01] MEDS ORDERED: TUBERCULIN, PURIFIED PROTEIN DERIVATIVE 5 TU/0.1 ML SYG ID ONE (16:00)
[2017-08-01] MEDS ORDERED: GuaiFENesin/D-METHORPHAN [SUGAR-FREE] 200-20MG/10 ML SYRUP UDCUP PO PRN (16:00)
[2017-08-01] MEDS ORDERED: PROMETHAZINE HCL 25 MG TABLET PO PRN (16:00)
[2017-08-01] MEDS ORDERED: MAGNESIUM HYDROXIDE SUSPENSION 30 ML UDCUP PO PRN (16:00)
[2017-08-01] MEDS ORDERED: LOPERAMIDE HCL 2 MG CAPSULE PO PRN (16:00)
[2017-08-01 16:06] VITALS: BP 119/73
[2017-08-01] MEDS: THIAMINE HCL 100 MG TABLET PO SCH (16:08)
[2017-08-01] MEDS: PANTOPRAZOLE SODIUM 40 MG DR TABLET PO SCH (17:00)
[2017-08-01] MEDS: MetFORMIN HCL 500 MG TABLET PO SCH (17:30)
[2017-08-01 20:59] LABS: GLUCOMETER DEV NAME(LOC) 3EC; GLUCOSE,POINT OF CARE 156 MG/DL (70-110)
[2017-08-01] MEDS: DIVALPROEX SODIUM 500 MG ER TABLET PO SCH (21:00)
[2017-08-01] MEDS: OLANZapine 10 MG RAPDIS TABLET PO SCH (21:00)
[2017-08-02] MEDS: ZOLPIDEM TARTRATE 10 MG TABLET PO PRN (01:44)
[2017-08-02 06:12] LABS: GLUCOMETER DEV NAME(LOC) 3EC; GLUCOSE,POINT OF CARE 147 MG/DL (70-110)
[2017-08-02] MEDS: MetFORMIN HCL 500 MG TABLET PO SCH ×2 (06:59→18:34)
[2017-08-02 08:00] VITALS: BP 137/91
[2017-08-02 09:18] LABS: GLUCOSE,POINT OF CARE 139 MG/DL (70-110)
[2017-08-02] MEDS: MULTIVITAMINS WITH MINERALS, THERAPEUTIC TABLET PO SCH (09:38)
[2017-08-02] MEDS: HydrOXYzine PAMOATE 50 MG CAPSULE PO PRN ×2 (09:38→13:49)
[2017-08-02] MEDS: MAG HYDROX/AL HYDROX/SIMETH ES 30 ML SUSPENSION UDCUP PO PRN (09:38)
[2017-08-02] MEDS: LinaGLIPtin 5 MG TABLET PO SCH (09:38)
[2017-08-02] MEDS: THIAMINE HCL 100 MG TABLET PO SCH ×2 (09:38→18:34)
[2017-08-02] MEDS: LISINOPRIL 5 MG TABLET PO SCH (09:38)
[2017-08-02] MEDS: OLANZapine 5 MG RAPDIS TABLET PO PRN ×2 (09:38→13:49)
[2017-08-02] MEDS: PANTOPRAZOLE SODIUM 40 MG DR TABLET PO SCH ×2 (09:38→18:34)
[2017-08-02] MEDS: FOLIC ACID 1 MG TABLET PO SCH (09:38)
[2017-08-02] MEDS: AmLODIPine BESYLATE 10 MG TABLET PO SCH (09:38)
[2017-08-02] MEDS: LORazepam 2 MG TABLET PO PRN ×2 (09:38→13:49)
[2017-08-02] MEDS ORDERED: INFLUENZA VIRUS VACCINE QVS 2017-18 (3YR+)/PF 60 MCG/0.5 ML SYRINGE IM ONE (09:45)
[2017-08-02] MEDS: NALTREXONE HCL 50 MG TABLET PO SCH (11:35)
[2017-08-02] MEDS ORDERED: GLUCAGON,HUMAN RECOMBINANT 1 MG VIAL IM PRN (12:00)
[2017-08-02] MEDS: ACETAMINOPHEN 325 MG TABLET PO PRN (13:35)
[2017-08-02] MEDS: OLANZapine 10 MG RAPDIS TABLET PO SCH (20:49)
[2017-08-02] MEDS: DIVALPROEX SODIUM 500 MG ER TABLET PO SCH (20:49)
[2017-08-02 20:52] LABS: GLUCOMETER DEV NAME(LOC) 3EC; GLUCOSE,POINT OF CARE 139 MG/DL (70-110)
[2017-08-03] MEDS: ACETAMINOPHEN 325 MG TABLET PO PRN ×2 (05:03→11:32)
[2017-08-03 05:05] VITALS: BP 102/70
[2017-08-03] MEDS ORDERED: PNEUMOCOCCAL VACCINE POLYVALENT 0.5 ML VIAL [PPSV23] IM ONE (05:30)
[2017-08-03 05:58] LABS: GLUCOMETER DEV NAME(LOC) 3EC; GLUCOSE,POINT OF CARE 208 MG/DL (70-110)
[2017-08-03] MEDS: INSULIN ASPART 100 UNITS/ML SQ PRN ×2 (06:47→17:19)
[2017-08-03] MEDS: MetFORMIN HCL 500 MG TABLET PO SCH ×2 (06:47→16:23)
[2017-08-03 07:18] LABS: HEMOGLOBIN A1C 8.1 % (4.5-6.2)
[2017-08-03] MEDS: OLANZapine 5 MG RAPDIS TABLET PO PRN ×3 (07:21→15:48)
[2017-08-03] MEDS: THIAMINE HCL 100 MG TABLET PO SCH ×2 (07:21→16:17)
[2017-08-03] MEDS: LISINOPRIL 5 MG TABLET PO SCH (07:21)
[2017-08-03] MEDS: LORazepam 2 MG TABLET PO PRN ×3 (07:21→19:30)
[2017-08-03] MEDS: MULTIVITAMINS WITH MINERALS, THERAPEUTIC TABLET PO SCH (07:21)
[2017-08-03] MEDS: LinaGLIPtin 5 MG TABLET PO SCH (07:21)
[2017-08-03] MEDS: FOLIC ACID 1 MG TABLET PO SCH (07:21)
[2017-08-03] MEDS: HydrOXYzine PAMOATE 50 MG CAPSULE PO PRN ×2 (07:21→11:27)
[2017-08-03] MEDS: NALTREXONE HCL 50 MG TABLET PO SCH (07:21)
[2017-08-03] MEDS: AmLODIPine BESYLATE 10 MG TABLET PO SCH (07:21)
[2017-08-03] MEDS: PANTOPRAZOLE SODIUM 40 MG DR TABLET PO SCH ×2 (07:22→16:17)
[2017-08-03 07:35] LABS: CREATINE KINASE MB 2.6 ng/mL (0-5); CREATINE KINASE, TOTAL 111 U/L (39-308)
[2017-08-03 08:38] LABS: FOLATE SERUM 19.3 ng/mL (5.4-)
[2017-08-03 11:58] LABS: GLUCOMETER DEV NAME(LOC) 3EC; GLUCOSE,POINT OF CARE 165 MG/DL (70-110)
[2017-08-03 16:25] VITALS: BP 102/54
[2017-08-03 17:22] LABS: GLUCOMETER DEV NAME(LOC) 3EC; GLUCOSE,POINT OF CARE 249 MG/DL (70-110)
[2017-08-03 19:18] VITALS: BP 118/72
[2017-08-03] MEDS: OLANZapine 10 MG RAPDIS TABLET PO SCH (20:32)
[2017-08-03] MEDS: LITHIUM CARBONATE 300 MG CAPSULE PO SCH (20:35)
[2017-08-03] MEDS: DIVALPROEX SODIUM 500 MG ER TABLET PO SCH (20:35)
[2017-08-03 22:32] LABS: GLUCOMETER DEV NAME(LOC) 3EC; GLUCOSE,POINT OF CARE 100 MG/DL (70-110)
[2017-08-04 06:48] LABS: GLUCOMETER DEV NAME(LOC) 3EC; GLUCOSE,POINT OF CARE 128 MG/DL (70-110)
[2017-08-04] MEDS: MetFORMIN HCL 500 MG TABLET PO SCH ×2 (06:58→17:58)
[2017-08-04] MEDS: INSULIN ASPART 100 UNITS/ML SQ PRN (06:58)
[2017-08-04] MEDS: AmLODIPine BESYLATE 10 MG TABLET PO SCH (07:38)
[2017-08-04] MEDS: LinaGLIPtin 5 MG TABLET PO SCH (07:38)
[2017-08-04] MEDS: LISINOPRIL 5 MG TABLET PO SCH (07:38)
[2017-08-04] MEDS: NALTREXONE HCL 50 MG TABLET PO SCH (07:38)
[2017-08-04] MEDS: FOLIC ACID 1 MG TABLET PO SCH (07:38)
[2017-08-04 07:39] VITALS: BP 128/62
[2017-08-04] MEDS: THIAMINE HCL 100 MG TABLET PO SCH ×2 (07:39→17:58)
[2017-08-04] MEDS: OLANZapine 5 MG RAPDIS TABLET PO PRN ×2 (07:39→13:38)
[2017-08-04] MEDS: ACETAMINOPHEN 325 MG TABLET PO PRN (07:39)
[2017-08-04] MEDS: PANTOPRAZOLE SODIUM 40 MG DR TABLET PO SCH ×2 (07:39→17:58)
[2017-08-04] MEDS: LORazepam 2 MG TABLET PO PRN ×2 (07:39→13:38)
[2017-08-04] MEDS: MULTIVITAMINS WITH MINERALS, THERAPEUTIC TABLET PO SCH (07:39)
[2017-08-04] MEDS: HydrOXYzine PAMOATE 50 MG CAPSULE PO PRN ×2 (07:39→13:38)
[2017-08-04 09:06] VITALS: BP 128/62
[2017-08-04 11:57] LABS: GLUCOMETER DEV NAME(LOC) 3EC; GLUCOSE,POINT OF CARE 102 MG/DL (70-110)
[2017-08-04 18:07] LABS: GLUCOMETER DEV NAME(LOC) 3EC; GLUCOSE,POINT OF CARE 85 MG/DL (70-110)
[2017-08-04] MEDS: DIVALPROEX SODIUM 500 MG ER TABLET PO SCH (21:47)
[2017-08-04] MEDS: OLANZapine 10 MG RAPDIS TABLET PO SCH (21:48)
[2017-08-04] MEDS: LITHIUM CARBONATE 300 MG CAPSULE PO SCH (21:48)
[2017-08-05] MEDS: INSULIN ASPART 100 UNITS/ML SQ PRN ×2 (06:49→11:57)
[2017-08-05] MEDS: MetFORMIN HCL 500 MG TABLET PO SCH ×2 (06:49→16:43)
[2017-08-05 06:52] LABS: GLUCOMETER DEV NAME(LOC) 3EC; GLUCOSE,POINT OF CARE 113 MG/DL (70-110)
[2017-08-05 08:37] VITALS: BP 140/86
[2017-08-05] MEDS: THIAMINE HCL 100 MG TABLET PO SCH ×2 (08:51→16:42)
[2017-08-05] MEDS: MULTIVITAMINS WITH MINERALS, THERAPEUTIC TABLET PO SCH (08:51)
[2017-08-05] MEDS: AmLODIPine BESYLATE 10 MG TABLET PO SCH (08:52)
[2017-08-05] MEDS: NALTREXONE HCL 50 MG TABLET PO SCH (08:52)
[2017-08-05] MEDS: FOLIC ACID 1 MG TABLET PO SCH (08:52)
[2017-08-05] MEDS: PANTOPRAZOLE SODIUM 40 MG DR TABLET PO SCH ×2 (08:52→16:42)
[2017-08-05] MEDS: LinaGLIPtin 5 MG TABLET PO SCH (08:53)
[2017-08-05] MEDS: LISINOPRIL 5 MG TABLET PO SCH (08:53)
[2017-08-05] MEDS: LORazepam 2 MG TABLET PO PRN ×2 (11:29→15:45)
[2017-08-05 11:43] LABS: GLUCOMETER DEV NAME(LOC) 3EC; GLUCOSE,POINT OF CARE 192 MG/DL (70-110)
[2017-08-05] MEDS: OLANZapine 5 MG RAPDIS TABLET PO PRN (15:48)
[2017-08-05 17:07] LABS: GLUCOMETER DEV NAME(LOC) 3EC; GLUCOSE,POINT OF CARE 73 MG/DL (70-110)
[2017-08-05] MEDS: DIVALPROEX SODIUM 500 MG ER TABLET PO SCH (22:46)
[2017-08-05] MEDS: LITHIUM CARBONATE 300 MG CAPSULE PO SCH (22:46)
[2017-08-05] MEDS: OLANZapine 10 MG RAPDIS TABLET PO SCH (22:47)
[2017-08-05 22:53] LABS: GLUCOMETER DEV NAME(LOC) 3EC; GLUCOSE,POINT OF CARE 174 MG/DL (70-110)
[2017-08-06 06:08] LABS: GLUCOMETER DEV NAME(LOC) 3EC; GLUCOSE,POINT OF CARE 95 MG/DL (70-110)
[2017-08-06] MEDS: MetFORMIN HCL 500 MG TABLET PO SCH ×2 (06:48→16:49)
[2017-08-06 08:16] VITALS: BP 121/73
[2017-08-06] MEDS: MULTIVITAMINS WITH MINERALS, THERAPEUTIC TABLET PO SCH (08:21)
[2017-08-06] MEDS: AmLODIPine BESYLATE 10 MG TABLET PO SCH (08:21)
[2017-08-06] MEDS: THIAMINE HCL 100 MG TABLET PO SCH ×2 (08:21→16:49)
[2017-08-06] MEDS: FOLIC ACID 1 MG TABLET PO SCH (08:21)
[2017-08-06] MEDS: PANTOPRAZOLE SODIUM 40 MG DR TABLET PO SCH ×2 (08:21→16:49)
[2017-08-06] MEDS: NALTREXONE HCL 50 MG TABLET PO SCH (08:22)
[2017-08-06] MEDS: LinaGLIPtin 5 MG TABLET PO SCH (08:22)
[2017-08-06] MEDS: LISINOPRIL 5 MG TABLET PO SCH (08:22)
[2017-08-06] MEDS: INSULIN ASPART 100 UNITS/ML SQ PRN (11:35)
[2017-08-06 11:43] LABS: GLUCOMETER DEV NAME(LOC) 3EC; GLUCOSE,POINT OF CARE 137 MG/DL (70-110)
[2017-08-06 16:43] LABS: GLUCOMETER DEV NAME(LOC) 3EC; GLUCOSE,POINT OF CARE 121 MG/DL (70-110)
[2017-08-06] MEDS: LORazepam 2 MG TABLET PO PRN (16:49)
[2017-08-06 16:54] VITALS: BP 113/62
[2017-08-06] MEDS: DIVALPROEX SODIUM 500 MG ER TABLET PO SCH (20:46)
[2017-08-06] MEDS: LITHIUM CARBONATE 300 MG CAPSULE PO SCH (20:46)
[2017-08-06] MEDS: OLANZapine 10 MG RAPDIS TABLET PO SCH (20:47)
[2017-08-06 21:07] LABS: GLUCOMETER DEV NAME(LOC) 3EC; GLUCOSE,POINT OF CARE 124 MG/DL (70-110)
[2017-08-07 05:53] VITALS: BP 119/69
[2017-08-07 06:59] LABS: GLUCOMETER DEV NAME(LOC) 3EC; GLUCOSE,POINT OF CARE 121 MG/DL (70-110)
[2017-08-07] MEDS: MetFORMIN HCL 500 MG TABLET PO SCH ×2 (07:07→17:03)
[2017-08-07] MEDS: INSULIN ASPART 100 UNITS/ML SQ PRN (07:08)
[2017-08-07] MEDS: NALTREXONE HCL 50 MG TABLET PO SCH (07:32)
[2017-08-07] MEDS: PANTOPRAZOLE SODIUM 40 MG DR TABLET PO SCH ×2 (07:32→17:03)
[2017-08-07] MEDS: LinaGLIPtin 5 MG TABLET PO SCH (07:32)
[2017-08-07] MEDS: MULTIVITAMINS WITH MINERALS, THERAPEUTIC TABLET PO SCH (07:32)
[2017-08-07] MEDS: LISINOPRIL 5 MG TABLET PO SCH (07:32)
[2017-08-07] MEDS: LORazepam 2 MG TABLET PO PRN ×2 (07:33→11:56)
[2017-08-07] MEDS: AmLODIPine BESYLATE 10 MG TABLET PO SCH (07:33)
[2017-08-07] MEDS: THIAMINE HCL 100 MG TABLET PO SCH ×2 (07:33→17:03)
[2017-08-07] MEDS: OLANZapine 5 MG RAPDIS TABLET PO PRN ×2 (07:33→11:56)
[2017-08-07] MEDS: FOLIC ACID 1 MG TABLET PO SCH (07:33)
[2017-08-07 08:00] VITALS: BP 131/74
[2017-08-07 11:59] LABS: GLUCOMETER DEV NAME(LOC) 3EC; GLUCOSE,POINT OF CARE 81 MG/DL (70-110)
[2017-08-07 16:00] VITALS: BP 109/58
[2017-08-07 17:08] LABS: GLUCOMETER DEV NAME(LOC) 3EC; GLUCOSE,POINT OF CARE 114 MG/DL (70-110)
[2017-08-07] MEDS: DIVALPROEX SODIUM 500 MG ER TABLET PO SCH (20:29)
[2017-08-07] MEDS: LITHIUM CARBONATE 300 MG CAPSULE PO SCH (20:29)
[2017-08-07] MEDS: OLANZapine 10 MG RAPDIS TABLET PO SCH (20:29)
[2017-08-07 22:07] LABS: GLUCOMETER DEV NAME(LOC) 3EC; GLUCOSE,POINT OF CARE 99 MG/DL (70-110)
[2017-08-08 06:28] LABS: GLUCOMETER DEV NAME(LOC) 3EC; GLUCOSE,POINT OF CARE 122 MG/DL (70-110)
[2017-08-08 06:34] VITALS: BP 140/62
[2017-08-08] MEDS: MetFORMIN HCL 500 MG TABLET PO SCH ×2 (06:34→17:13)
[2017-08-08 06:41] LABS: BASOPHILS % (AUTO) 0.3 % (0.0-2.0); EOSINOPHILS % (AUTO) 3.7 % (1.0-6.0); HEMATOCRIT 30.9 % (41-53); HEMOGLOBIN 9.8 g/dL (13.5-17.5); LYMPHOCYTES # (AUTO) 1.8 K/uL (1.0-4.8); LYMPHOCYTES % (AUTO) 21.8 % (22.0-44.0); MEAN CORPUSCULAR HGB CONC 31.6 G/dL (31.0-37.0); MEAN CORPUSCULAR VOLUME 76 fL (80-100); MONOCYTES # (AUTO) 0.5 K/uL (0.1-1.0); MONOCYTES % (AUTO) 6.6 % (2.0-9.0); NEUTROPHILS # (AUTO) 5.5 K/uL (1.8-7.7); NEUTROPHILS % (AUTO) 67.6 % (40.0-70.0); PLATELET COUNT (AUTO) 208 K/uL (150-450); RED BLOOD CELL COUNT(AUTO) 4.07 MIL/uL (4.50-5.90); RED CELL DISTRIBUTION WIDTH 17.9 % (11.5-14.5)
[2017-08-08] MEDS: THIAMINE HCL 100 MG TABLET PO SCH ×2 (08:23→17:13)
[2017-08-08] MEDS: AmLODIPine BESYLATE 10 MG TABLET PO SCH (08:23)
[2017-08-08] MEDS: MULTIVITAMINS WITH MINERALS, THERAPEUTIC TABLET PO SCH (08:23)
[2017-08-08] MEDS: FOLIC ACID 1 MG TABLET PO SCH (08:23)
[2017-08-08] MEDS: PANTOPRAZOLE SODIUM 40 MG DR TABLET PO SCH ×2 (08:23→17:13)
[2017-08-08] MEDS: LORazepam 2 MG TABLET PO PRN (08:23)
[2017-08-08] MEDS: OLANZapine 5 MG RAPDIS TABLET PO PRN (08:24)
[2017-08-08] MEDS: LISINOPRIL 5 MG TABLET PO SCH (08:31)
[2017-08-08] MEDS: LinaGLIPtin 5 MG TABLET PO SCH (08:31)
[2017-08-08] MEDS: NALTREXONE HCL 50 MG TABLET PO SCH (08:31)
[2017-08-08 08:56] LABS: CREATINE KINASE, TOTAL 51 U/L (39-308)
[2017-08-08 11:23] LABS: GLUCOMETER DEV NAME(LOC) 3EC; GLUCOSE,POINT OF CARE 83 MG/DL (70-110)
[2017-08-08] MEDS: INSULIN ASPART 100 UNITS/ML SQ PRN (11:33)
[2017-08-08 17:28] LABS: GLUCOMETER DEV NAME(LOC) 3EC; GLUCOSE,POINT OF CARE 105 MG/DL (70-110)
[2017-08-08] MEDS: DIVALPROEX SODIUM 500 MG ER TABLET PO SCH (21:36)
[2017-08-08] MEDS: OLANZapine 10 MG RAPDIS TABLET PO SCH (21:37)
[2017-08-08 21:47] LABS: GLUCOMETER DEV NAME(LOC) 3EC; GLUCOSE,POINT OF CARE 147 MG/DL (70-110)
[2017-08-09 06:07] LABS: GLUCOMETER DEV NAME(LOC) 3EC; GLUCOSE,POINT OF CARE 80 MG/DL (70-110)
[2017-08-09] MEDS: MetFORMIN HCL 500 MG TABLET PO SCH ×2 (07:00→17:50)
[2017-08-09] MEDS: INSULIN ASPART 100 UNITS/ML SQ PRN ×2 (07:01→11:46)
[2017-08-09 09:20] VITALS: BP 106/59
[2017-08-09] MEDS: NALTREXONE HCL 50 MG TABLET PO SCH (09:23)
[2017-08-09] MEDS: AmLODIPine BESYLATE 10 MG TABLET PO SCH (09:23)
[2017-08-09] MEDS: LinaGLIPtin 5 MG TABLET PO SCH (09:23)
[2017-08-09] MEDS: LISINOPRIL 5 MG TABLET PO SCH (09:23)
[2017-08-09] MEDS: FOLIC ACID 1 MG TABLET PO SCH (09:23)
[2017-08-09] MEDS: THIAMINE HCL 100 MG TABLET PO SCH ×2 (09:23→17:50)
[2017-08-09] MEDS: LORazepam 2 MG TABLET PO PRN (09:23)
[2017-08-09] MEDS: PANTOPRAZOLE SODIUM 40 MG DR TABLET PO SCH ×2 (09:23→17:50)
[2017-08-09] MEDS: MULTIVITAMINS WITH MINERALS, THERAPEUTIC TABLET PO SCH (09:23)
[2017-08-09 11:43] LABS: GLUCOMETER DEV NAME(LOC) 3EC; GLUCOSE,POINT OF CARE 104 MG/DL (70-110)
[2017-08-09 12:35] LABS: CREATININE 1.63 mg/dL (0.60-1.30)
[2017-08-09 18:09] LABS: GLUCOMETER DEV NAME(LOC) 3EC; GLUCOSE,POINT OF CARE 105 MG/DL (70-110)
[2017-08-09] MEDS: DIVALPROEX SODIUM 500 MG ER TABLET PO SCH (20:33)
[2017-08-09] MEDS: OLANZapine 10 MG RAPDIS TABLET PO SCH (20:33)
[2017-08-09 22:52] LABS: GLUCOMETER DEV NAME(LOC) 3EC; GLUCOSE,POINT OF CARE 180 MG/DL (70-110)
[2017-08-10 05:33] LABS: GLUCOMETER DEV NAME(LOC) 3EC; GLUCOSE,POINT OF CARE 112 MG/DL (70-110)
[2017-08-10] MEDS: MetFORMIN HCL 500 MG TABLET PO SCH ×2 (07:16→18:00)
[2017-08-10 08:05] VITALS: BP 115/67
[2017-08-10] MEDS: PANTOPRAZOLE SODIUM 40 MG DR TABLET PO SCH ×2 (08:39→16:27)
[2017-08-10] MEDS: NALTREXONE HCL 50 MG TABLET PO SCH (08:39)
[2017-08-10] MEDS: LISINOPRIL 5 MG TABLET PO SCH (08:39)
[2017-08-10] MEDS: FOLIC ACID 1 MG TABLET PO SCH (08:39)
[2017-08-10] MEDS: LORazepam 2 MG TABLET PO PRN ×2 (08:39→16:27)
[2017-08-10] MEDS: THIAMINE HCL 100 MG TABLET PO SCH ×2 (08:39→16:27)
[2017-08-10] MEDS: AmLODIPine BESYLATE 10 MG TABLET PO SCH (08:39)
[2017-08-10] MEDS: MULTIVITAMINS WITH MINERALS, THERAPEUTIC TABLET PO SCH (08:39)
[2017-08-10] MEDS: LinaGLIPtin 5 MG TABLET PO SCH (08:39)
[2017-08-10 11:43] LABS: GLUCOMETER DEV NAME(LOC) 3EC; GLUCOSE,POINT OF CARE 116 MG/DL (70-110)
[2017-08-10] MEDS: INSULIN ASPART 100 UNITS/ML SQ PRN (11:49)
[2017-08-10 16:23] LABS: GLUCOMETER DEV NAME(LOC) 3EC; GLUCOSE,POINT OF CARE 127 MG/DL (70-110)
[2017-08-10 19:56] VITALS: BP 103/65
[2017-08-10 20:53] LABS: GLUCOMETER DEV NAME(LOC) 3EC; GLUCOSE,POINT OF CARE 137 MG/DL (70-110)
[2017-08-10] MEDS: DIVALPROEX SODIUM 500 MG ER TABLET PO SCH (20:55)
[2017-08-10] MEDS: OLANZapine 10 MG RAPDIS TABLET PO SCH (20:56)
[2017-08-10] MEDS: ZOLPIDEM TARTRATE 10 MG TABLET PO PRN (21:02)
[2017-08-11 05:48] LABS: GLUCOMETER DEV NAME(LOC) 3EC; GLUCOSE,POINT OF CARE 83 MG/DL (70-110)
[2017-08-11] MEDS: MetFORMIN HCL 500 MG TABLET PO SCH ×2 (07:02→16:32)
[2017-08-11] MEDS: INSULIN ASPART 100 UNITS/ML SQ PRN ×2 (07:04→13:56)
[2017-08-11 08:00] VITALS: BP 123/62
[2017-08-11] MEDS: AmLODIPine BESYLATE 10 MG TABLET PO SCH (08:55)
[2017-08-11] MEDS: NALTREXONE HCL 50 MG TABLET PO SCH (08:55)
[2017-08-11] MEDS: LISINOPRIL 5 MG TABLET PO SCH (08:55)
[2017-08-11] MEDS: MULTIVITAMINS WITH MINERALS, THERAPEUTIC TABLET PO SCH (08:55)
[2017-08-11] MEDS: THIAMINE HCL 100 MG TABLET PO SCH (08:55)
[2017-08-11] MEDS: LORazepam 2 MG TABLET PO PRN (08:55)
[2017-08-11] MEDS: PANTOPRAZOLE SODIUM 40 MG DR TABLET PO SCH ×2 (08:55→16:32)
[2017-08-11] MEDS: LinaGLIPtin 5 MG TABLET PO SCH (08:55)
[2017-08-11] MEDS: FOLIC ACID 1 MG TABLET PO SCH (08:55)
[2017-08-11 11:28] LABS: GLUCOMETER DEV NAME(LOC) 3EC; GLUCOSE,POINT OF CARE 107 MG/DL (70-110)
[2017-08-11 16:58] LABS: GLUCOMETER DEV NAME(LOC) 3EC; GLUCOSE,POINT OF CARE 88 MG/DL (70-110)
[2017-08-11 17:50] VITALS: BP 118/74
[2017-08-11] MEDS: OLANZapine 10 MG RAPDIS TABLET PO SCH (20:50)
[2017-08-11] MEDS: DIVALPROEX SODIUM 500 MG ER TABLET PO SCH (20:50)
[2017-08-11 22:03] LABS: GLUCOMETER DEV NAME(LOC) 3EC; GLUCOSE,POINT OF CARE 118 MG/DL (70-110)
[2017-08-12 06:23] LABS: GLUCOMETER DEV NAME(LOC) 3EC; GLUCOSE,POINT OF CARE 104 MG/DL (70-110)
[2017-08-12] MEDS: MetFORMIN HCL 500 MG TABLET PO SCH ×2 (07:06→17:02)
[2017-08-12 08:09] VITALS: BP 126/63
[2017-08-12] MEDS: LinaGLIPtin 5 MG TABLET PO SCH (09:30)
[2017-08-12] MEDS: AmLODIPine BESYLATE 10 MG TABLET PO SCH (09:30)
[2017-08-12] MEDS: NALTREXONE HCL 50 MG TABLET PO SCH (09:30)
[2017-08-12] MEDS: MULTIVITAMINS WITH MINERALS, THERAPEUTIC TABLET PO SCH (09:30)
[2017-08-12] MEDS: LISINOPRIL 5 MG TABLET PO SCH (09:30)
[2017-08-12] MEDS: PANTOPRAZOLE SODIUM 40 MG DR TABLET PO SCH ×2 (09:32→17:02)
[2017-08-12 16:00] VITALS: BP 131/91
[2017-08-12 17:13] LABS: GLUCOMETER DEV NAME(LOC) 3EC; GLUCOSE,POINT OF CARE 121 MG/DL (70-110)
[2017-08-12] MEDS: MAG HYDROX/AL HYDROX/SIMETH ES 30 ML SUSPENSION UDCUP PO PRN (19:23)
[2017-08-12] MEDS: OLANZapine 10 MG RAPDIS TABLET PO SCH (20:06)
[2017-08-12] MEDS: DIVALPROEX SODIUM 500 MG ER TABLET PO SCH (20:07)
[2017-08-12 20:17] LABS: GLUCOMETER DEV NAME(LOC) 3EC; GLUCOSE,POINT OF CARE 122 MG/DL (70-110)
[2017-08-13] MEDS: ACETAMINOPHEN 325 MG TABLET PO PRN ×2 (05:07→13:09)
[2017-08-13 05:09] VITALS: BP 117/68
[2017-08-13 06:23] LABS: GLUCOMETER DEV NAME(LOC) 3EC; GLUCOSE,POINT OF CARE 120 MG/DL (70-110)
[2017-08-13] MEDS: MetFORMIN HCL 500 MG TABLET PO SCH ×2 (06:51→16:35)
[2017-08-13 08:15] VITALS: BP 110/60
[2017-08-13] MEDS: PANTOPRAZOLE SODIUM 40 MG DR TABLET PO SCH ×2 (08:19→16:35)
[2017-08-13] MEDS: LISINOPRIL 5 MG TABLET PO SCH (08:19)
[2017-08-13] MEDS: AmLODIPine BESYLATE 10 MG TABLET PO SCH (08:19)
[2017-08-13] MEDS: MULTIVITAMINS WITH MINERALS, THERAPEUTIC TABLET PO SCH (08:19)
[2017-08-13] MEDS: LinaGLIPtin 5 MG TABLET PO SCH (08:20)
[2017-08-13] MEDS: NALTREXONE HCL 50 MG TABLET PO SCH (08:20)
[2017-08-13 11:58] LABS: GLUCOMETER DEV NAME(LOC) 3EC; GLUCOSE,POINT OF CARE 107 MG/DL (70-110)
[2017-08-13 18:13] LABS: GLUCOMETER DEV NAME(LOC) 3EC; GLUCOSE,POINT OF CARE 172 MG/DL (70-110)
[2017-08-13] MEDS: DIVALPROEX SODIUM 500 MG ER TABLET PO SCH (21:19)
[2017-08-13] MEDS: OLANZapine 10 MG RAPDIS TABLET PO SCH (21:19)
[2017-08-13] MEDS: INSULIN ASPART 100 UNITS/ML SQ PRN (21:46)
[2017-08-14] MEDS: ACETAMINOPHEN 325 MG TABLET PO PRN ×2 (02:08→11:14)
[2017-08-14 02:14] VITALS: BP 114/80
[2017-08-14 06:38] LABS: GLUCOMETER DEV NAME(LOC) 3EC; GLUCOSE,POINT OF CARE 124 MG/DL (70-110)
[2017-08-14] MEDS: MetFORMIN HCL 500 MG TABLET PO SCH ×2 (07:14→16:09)
[2017-08-14 08:13] VITALS: BP 125/94
[2017-08-14] MEDS: AmLODIPine BESYLATE 10 MG TABLET PO SCH (08:15)
[2017-08-14] MEDS: LinaGLIPtin 5 MG TABLET PO SCH (08:16)
[2017-08-14] MEDS: MULTIVITAMINS WITH MINERALS, THERAPEUTIC TABLET PO SCH (08:16)
[2017-08-14] MEDS: LISINOPRIL 5 MG TABLET PO SCH (08:16)
[2017-08-14] MEDS: PANTOPRAZOLE SODIUM 40 MG DR TABLET PO SCH ×2 (08:16→16:09)
[2017-08-14] MEDS: NALTREXONE HCL 50 MG TABLET PO SCH (08:16)
[2017-08-14] MEDS: INSULIN ASPART 100 UNITS/ML SQ PRN ×2 (11:28→17:21)
[2017-08-14 11:37] LABS: GLUCOMETER DEV NAME(LOC) 3EC; GLUCOSE,POINT OF CARE 160 MG/DL (70-110)
[2017-08-14] MEDS ORDERED: ACETAMINOPHEN 325 MG TABLET PO PRN (13:00)
[2017-08-14] MEDS ORDERED: IBUPROFEN 600 MG TABLET PO PRN (13:00)
[2017-08-14] MEDS: LORazepam 2 MG TABLET PO PRN (16:09)
[2017-08-14 16:58] LABS: GLUCOMETER DEV NAME(LOC) 3EC; GLUCOSE,POINT OF CARE 169 MG/DL (70-110)
[2017-08-14] MEDS: OLANZapine 10 MG RAPDIS TABLET PO SCH (21:37)
[2017-08-14] MEDS: DIVALPROEX SODIUM 500 MG ER TABLET PO SCH (21:38)
[2017-08-14 21:57] LABS: GLUCOMETER DEV NAME(LOC) 3EC; GLUCOSE,POINT OF CARE 129 MG/DL (70-110)
[2017-08-14 22:17] VITALS: BP 131/92
[2017-08-14 23:42] VITALS: BP 149/79
[2017-08-14] MEDS: ZOLPIDEM TARTRATE 10 MG TABLET PO PRN (23:42)
[2017-08-15 06:36] LABS: GLUCOMETER DEV NAME(LOC) 3EC; GLUCOSE,POINT OF CARE 112 MG/DL (70-110)
[2017-08-15] MEDS: MetFORMIN HCL 500 MG TABLET PO SCH (07:02)
[2017-08-15] MEDS: INSULIN ASPART 100 UNITS/ML SQ PRN ×2 (07:02→12:01)
[2017-08-15] MEDS: PANTOPRAZOLE SODIUM 40 MG DR TABLET PO SCH (08:45)
[2017-08-15] MEDS: MULTIVITAMINS WITH MINERALS, THERAPEUTIC TABLET PO SCH (08:45)
[2017-08-15] MEDS: LinaGLIPtin 5 MG TABLET PO SCH (08:46)
[2017-08-15] MEDS: LISINOPRIL 5 MG TABLET PO SCH (08:46)
[2017-08-15] MEDS: AmLODIPine BESYLATE 10 MG TABLET PO SCH (08:46)
[2017-08-15] MEDS: NALTREXONE HCL 50 MG TABLET PO SCH (08:46)
[2017-08-15 09:14] VITALS: BP 132/72
[2017-08-15] MEDS: LORazepam 2 MG TABLET PO PRN (10:03)
[2017-08-15] MEDS ORDERED: OLAN10TA22 PO (10:25)
[2017-08-15] MEDS ORDERED: NALT50TA PO (10:25)
[2017-08-15] MEDS ORDERED: DIVA500T52 PO (10:25)
[2017-08-15 11:48] LABS: GLUCOMETER DEV NAME(LOC) 3EC; GLUCOSE,POINT OF CARE 143 MG/DL (70-110)
== END 2017-08-15 14:40 | disposition home or self-care (01) | DRG 885 ==
LOC: EMS 16:51 → B3A 21:30 → UNDOADMIN 21:30 → 3EC 08-01 14:58
PROVIDERS: ADMIT Psychiatry & Neurology Child & Adolescent Psychiatry; ATTEND Psychiatry & Neurology Psychiatry
DX: F25.0 Schizoaffective disorder, bipolar type (principal); N18.9 Chronic kidney disease, unspecified; E11.65 Type 2 diabetes mellitus with hyperglycemia; E11.22 Type 2 diabetes mellitus with diabetic chronic kidney disease; R45.851 Suicidal ideations; D50.9 Iron deficiency anemia, unspecified; M19.90 Unspecified osteoarthritis, unspecified site; E55.9 Vitamin D deficiency, unspecified; I12.9 Hypertensive chronic kidney disease with stage 1 through stage 4 chronic kidney disease, or unspecified chronic kidney disease; K21.9 Gastro-esophageal reflux disease without esophagitis; R47.81 Slurred speech; M19.012 Primary osteoarthritis, left shoulder; Z85.118 Personal history of other malignant neoplasm of bronchus and lung; Z85.828 Personal history of other malignant neoplasm of skin; Z87.891 Personal history of nicotine dependence; Z88.0 Allergy status to penicillin; Z91.19 Patient's noncompliance with other medical treatment and regimen; Z82.5 Family history of asthma and other chronic lower respiratory diseases; Z83.3 Family history of diabetes mellitus
CPT/HCPCS: 82306; 82565; 82607; 82746; 82962; 83036; 83735; 99285; G0480

== ENCOUNTER 2017-08-21 14:08 | Emergency (ER) | payer MEDICARE, OTHER ==
[~2017-08-21] VITALS: Ht 177.8 cm; Wt 77.3 kg
[~2017-08-21 14:08] MED LIST changes: +NALT50TA PO; -NALT50TA6 PO
[2017-08-21 14:50] VITALS: BP 134/82
[2017-08-21] MEDS ORDERED: TraMADol HCL 50 MG TABLET PO ONE (15:45)
[2017-08-21 16:50] LABS: GLUCOSE,POINT OF CARE 235 MG/DL (70-110)
== END 2017-08-21 15:53 | disposition home or self-care (01) ==
LOC: EMS 14:56
DX: G89.29 Other chronic pain (principal); M25.512 Pain in left shoulder; M54.2 Cervicalgia; E11.9 Type 2 diabetes mellitus without complications; F25.9 Schizoaffective disorder, unspecified; F31.9 Bipolar disorder, unspecified; K21.9 Gastro-esophageal reflux disease without esophagitis; F17.210 Nicotine dependence, cigarettes, uncomplicated; Z88.0 Allergy status to penicillin
CPT/HCPCS: 82962; 99283; 99406

== ENCOUNTER 2017-08-30 19:01 | Inpatient (IN) | payer MEDICARE, MEDICAID ==
[~2017-08-30] VITALS: Ht 172.7 cm; Wt 66.7 kg
[2017-08-30 19:58] LABS: BASOPHILS % (AUTO) 0.4 % (0.0-2.0); EOSINOPHILS % (AUTO) 4.6 % (1.0-6.0); HEMATOCRIT 32.2 % (41-53); HEMOGLOBIN 10.2 g/dL (13.5-17.5); LYMPHOCYTES # (AUTO) 1.6 K/uL (1.0-4.8); LYMPHOCYTES % (AUTO) 27.8 % (22.0-44.0); MEAN CORPUSCULAR HEMOGLOBIN 23.5 pg (26.0-34.0); MEAN CORPUSCULAR HGB CONC 31.6 G/dL (31.0-37.0); MEAN CORPUSCULAR VOLUME 74 fL (80-100); MONOCYTES # (AUTO) 0.5 K/uL (0.1-1.0); MONOCYTES % (AUTO) 8.3 % (2.0-9.0); NEUTROPHILS # (AUTO) 3.4 K/uL (1.8-7.7); NEUTROPHILS % (AUTO) 58.9 % (40.0-70.0); PLATELET COUNT (AUTO) 178 K/uL (150-450); RED BLOOD CELL COUNT(AUTO) 4.34 MIL/uL (4.50-5.90); RED CELL DISTRIBUTION WIDTH 19.2 % (11.5-14.5)
[2017-08-30] MEDS ORDERED: HALOPERIDOL 5 MG TABLET PO ONE (20:00)
[2017-08-30] MEDS ORDERED: LORazepam 2 MG TABLET PO ONE (20:00)
[2017-08-30] MEDS ORDERED: DiphenhydrAMINE HCL 50 MG CAPSULE PO ONE (20:00)
[2017-08-30 20:16] LABS: ANION GAP 7 mmol/L (8-16); CALCIUM, TOTAL 9.1 mg/dL (8.8-10.5); CARBON DIOXIDE 28 mmol/L (22-29); CHLORIDE 100 mmol/L (98-107); CREATININE 1.16 mg/dL (0.60-1.30); GLOMERULAR FILTR. RATE CALC > 60 mL/min (>60); GLUCOSE,RANDOM 208 mg/dL (70-110); POTASSIUM 3.6 mmol/L (3.5-5.1); SODIUM SERUM 135 mmol/L (136-145); UREA NITROGEN, BLOOD 16 mg/dL (7-18)
[2017-08-30 20:24] LABS: ALANINE AMINOTRANSFERASE 18 U/L (12-78); ALBUMIN 3.5 g/dL (3.4-5.0); ALKALINE PHOSPHATASE 102 U/L (46-116); ASPARTATE AMINOTRANSFERASE 17 U/L (15-37); BILIRUBIN,TOTAL 0.2 mg/dL (0.1-1.0); TOTAL PROTEIN, SERUM 7.6 g/dL (6.4-8.2)
[2017-08-30 20:29] LABS: VALPROIC ACID < 3 mcg/mL (50-100)
[2017-08-30] MEDS ORDERED: OLANZapine 5 MG RAPDIS TABLET PO PRN (20:30)
[2017-08-30] MEDS ORDERED: ZOLPIDEM TARTRATE 10 MG TABLET PO PRN (20:30)
[2017-08-30 21:22] LABS: THYROID STIMULATING HORMONE 0.88 uIU/mL (0.36-3.74)
[2017-08-30] MEDS ORDERED: PNEUMOCOCCAL VACCINE POLYVALENT 0.5 ML VIAL [PPSV23] IM ONE (22:00)
[2017-08-30] MEDS ORDERED: INFLUENZA VIRUS VACCINE QVS 2017-18 (3YR+)/PF 60 MCG/0.5 ML SYRINGE IM ONE (22:00)
[2017-08-30 22:12] LABS: GLUCOMETER DEV NAME(LOC) BV3N5; GLUCOSE,POINT OF CARE 184 MG/DL (70-110)
[2017-08-30] MEDS ORDERED: GLUCAGON,HUMAN RECOMBINANT 1 MG VIAL IM PRN (22:15)
[2017-08-30] MEDS: INSULIN ASPART 100 UNITS/ML SQ PRN (22:18)
[2017-08-30 22:49] VITALS: BP 145/85
[2017-08-31 06:32] VITALS: BP 122/62
[2017-08-31] MEDS: MetFORMIN HCL 500 MG TABLET PO SCH ×2 (06:33→16:28)
[2017-08-31] MEDS: INSULIN ASPART 100 UNITS/ML SQ PRN ×4 (06:47→20:33)
[2017-08-31 06:48] LABS: GLUCOMETER DEV NAME(LOC) BV3N5; GLUCOSE,POINT OF CARE 203 MG/DL (70-110)
[2017-08-31 08:09] VITALS: BP 140/87
[2017-08-31] MEDS: LinaGLIPtin 5 MG TABLET PO SCH (09:07)
[2017-08-31] MEDS: AmLODIPine BESYLATE 10 MG TABLET PO SCH (09:07)
[2017-08-31] MEDS: PANTOPRAZOLE SODIUM 40 MG DR TABLET PO SCH ×2 (09:07→16:28)
[2017-08-31] MEDS: LORazepam 2 MG TABLET PO PRN ×2 (09:35→16:28)
[2017-08-31 12:03] LABS: GLUCOMETER DEV NAME(LOC) BV3N5; GLUCOSE,POINT OF CARE 159 MG/DL (70-110)
[2017-08-31] MEDS ORDERED: MAGNESIUM HYDROXIDE SUSPENSION 30 ML UDCUP PO PRN (14:00)
[2017-08-31] MEDS ORDERED: ACETAMINOPHEN 325 MG TABLET PO PRN (14:00)
[2017-08-31] MEDS ORDERED: PROMETHAZINE HCL 25 MG TABLET PO PRN (14:00)
[2017-08-31] MEDS ORDERED: LOPERAMIDE HCL 2 MG CAPSULE PO PRN (14:00)
[2017-08-31] MEDS ORDERED: MAG HYDROX/AL HYDROX/SIMETH ES 30 ML SUSPENSION UDCUP PO PRN (14:00)
[2017-08-31] MEDS ORDERED: GuaiFENesin/D-METHORPHAN [SUGAR-FREE] 200-20MG/10 ML SYRUP UDCUP PO PRN (14:00)
[2017-08-31] MEDS ORDERED: HydrOXYzine PAMOATE 50 MG CAPSULE PO PRN (14:00)
[2017-08-31 16:00] VITALS: BP 118/68
[2017-08-31] MEDS: THIAMINE HCL 100 MG TABLET PO SCH (16:28)
[2017-08-31 17:08] LABS: GLUCOMETER DEV NAME(LOC) BV3N5; GLUCOSE,POINT OF CARE 159 MG/DL (70-110)
[2017-08-31] MEDS: DIVALPROEX SODIUM 500 MG ER TABLET PO SCH (20:32)
[2017-08-31 20:58] LABS: GLUCOMETER DEV NAME(LOC) BV3N5; GLUCOSE,POINT OF CARE 226 MG/DL (70-110)
[2017-08-31] MEDS ORDERED: OLANZapine 5 MG RAPDIS TABLET PO SCH (21:00)
[2017-09-01 06:28] LABS: GLUCOMETER DEV NAME(LOC) BV2N3; GLUCOSE,POINT OF CARE 154 MG/DL (70-110)
[2017-09-01] MEDS: MetFORMIN HCL 500 MG TABLET PO SCH ×2 (07:02→16:57)
[2017-09-01] MEDS: INSULIN ASPART 100 UNITS/ML SQ PRN ×4 (07:21→21:01)
[2017-09-01 07:59] VITALS: BP 126/72
[2017-09-01 08:23] LABS: BASOPHILS % (AUTO) 0.3 % (0.0-2.0); EOSINOPHILS % (AUTO) 6.6 % (1.0-6.0); HEMATOCRIT 29.6 % (41-53); HEMOGLOBIN 9.6 g/dL (13.5-17.5); LYMPHOCYTES # (AUTO) 1.5 K/uL (1.0-4.8); LYMPHOCYTES % (AUTO) 32.1 % (22.0-44.0); MEAN CORPUSCULAR HEMOGLOBIN 23.9 pg (26.0-34.0); MEAN CORPUSCULAR HGB CONC 32.4 G/dL (31.0-37.0); MEAN CORPUSCULAR VOLUME 74 fL (80-100); MONOCYTES # (AUTO) 0.3 K/uL (0.1-1.0); MONOCYTES % (AUTO) 6.1 % (2.0-9.0); NEUTROPHILS # (AUTO) 2.6 K/uL (1.8-7.7); NEUTROPHILS % (AUTO) 54.9 % (40.0-70.0); PLATELET COUNT (AUTO) 168 K/uL (150-450); RED BLOOD CELL COUNT(AUTO) 4.02 MIL/uL (4.50-5.90); RED CELL DISTRIBUTION WIDTH 19.4 % (11.5-14.5)
[2017-09-01 08:38] LABS: ALANINE AMINOTRANSFERASE 29 U/L (12-78); ALKALINE PHOSPHATASE 84 U/L (46-116); ANION GAP 6 mmol/L (8-16); ASPARTATE AMINOTRANSFERASE 22 U/L (15-37); BILIRUBIN,TOTAL 0.3 mg/dL (0.1-1.0); CARBON DIOXIDE 30 mmol/L (22-29); CHLORIDE 105 mmol/L (98-107); CHOL/HDL RATIO 2.8 (4.2-7.3); CHOLESTEROL 146 mg/dL (131-200); CREATININE 1.09 mg/dL (0.60-1.30); GLOMERULAR FILTR. RATE CALC > 60 mL/min (>60); GLUCOSE,RANDOM 160 mg/dL (70-110); HDL CHOLESTEROL 52 mg/dL (40-60); LDL CHOL (CALC.) 81 mg/dL (0-130); POTASSIUM 4.6 mmol/L (3.5-5.1); SODIUM SERUM 141 mmol/L (136-145); TOTAL PROTEIN, SERUM 6.3 g/dL (6.4-8.2); TRIGLYCERIDES 67 mg/dL (15-150); UREA NITROGEN, BLOOD 18 mg/dL (7-18); VALPROIC ACID 41 mcg/mL (50-100)
[2017-09-01] MEDS: PANTOPRAZOLE SODIUM 40 MG DR TABLET PO SCH ×2 (08:41→16:57)
[2017-09-01] MEDS: THIAMINE HCL 100 MG TABLET PO SCH ×2 (08:41→16:57)
[2017-09-01] MEDS: NALTREXONE HCL 50 MG TABLET PO SCH (08:41)
[2017-09-01] MEDS: LinaGLIPtin 5 MG TABLET PO SCH (08:41)
[2017-09-01] MEDS: FOLIC ACID 1 MG TABLET PO SCH (08:41)
[2017-09-01] MEDS: MULTIVITAMINS WITH MINERALS, THERAPEUTIC TABLET PO SCH (08:41)
[2017-09-01] MEDS: AmLODIPine BESYLATE 10 MG TABLET PO SCH (08:41)
[2017-09-01] MEDS: LORazepam 2 MG TABLET PO PRN ×2 (10:13→16:57)
[2017-09-01 10:16] VITALS: BP 123/93
[2017-09-01 11:03] LABS: GLUCOMETER DEV NAME(LOC) BV2N3; GLUCOSE,POINT OF CARE 149 MG/DL (70-110)
[2017-09-01 16:11] VITALS: BP 124/82
[2017-09-01 16:43] LABS: GLUCOMETER DEV NAME(LOC) BV2N3; GLUCOSE,POINT OF CARE 159 MG/DL (70-110)
[2017-09-01] MEDS: DIVALPROEX SODIUM 500 MG ER TABLET PO SCH (20:36)
[2017-09-01] MEDS: OLANZapine 10 MG RAPDIS TABLET PO SCH (20:37)
[2017-09-01 20:52] LABS: GLUCOMETER DEV NAME(LOC) BV2N3; GLUCOSE,POINT OF CARE 186 MG/DL (70-110)
[2017-09-02 06:00] VITALS: BP 102/66
[2017-09-02 06:28] LABS: GLUCOMETER DEV NAME(LOC) BV2N3; GLUCOSE,POINT OF CARE 138 MG/DL (70-110)
[2017-09-02] MEDS: MetFORMIN HCL 500 MG TABLET PO SCH ×2 (06:41→16:22)
[2017-09-02] MEDS: THIAMINE HCL 100 MG TABLET PO SCH ×2 (09:37→16:22)
[2017-09-02] MEDS: PANTOPRAZOLE SODIUM 40 MG DR TABLET PO SCH ×2 (09:38→16:22)
[2017-09-02] MEDS: AmLODIPine BESYLATE 10 MG TABLET PO SCH (09:38)
[2017-09-02] MEDS: MULTIVITAMINS WITH MINERALS, THERAPEUTIC TABLET PO SCH (09:38)
[2017-09-02] MEDS: FOLIC ACID 1 MG TABLET PO SCH (09:38)
[2017-09-02] MEDS: NALTREXONE HCL 50 MG TABLET PO SCH (09:39)
[2017-09-02] MEDS: LORazepam 2 MG TABLET PO PRN ×2 (09:39→16:23)
[2017-09-02] MEDS: LinaGLIPtin 5 MG TABLET PO SCH (09:39)
[2017-09-02] MEDS: INSULIN ASPART 100 UNITS/ML SQ PRN (11:26)
[2017-09-02 12:12] LABS: GLUCOMETER DEV NAME(LOC) BV2N3; GLUCOSE,POINT OF CARE 160 MG/DL (70-110)
[2017-09-02 16:00] VITALS: BP 124/77
[2017-09-02 16:32] LABS: GLUCOMETER DEV NAME(LOC) BV2N3; GLUCOSE,POINT OF CARE 138 MG/DL (70-110)
[2017-09-02] MEDS: OLANZapine 10 MG RAPDIS TABLET PO SCH (21:48)
[2017-09-02] MEDS: DIVALPROEX SODIUM 500 MG ER TABLET PO SCH (21:48)
[2017-09-03 06:35] VITALS: BP 130/86
[2017-09-03] MEDS: MetFORMIN HCL 500 MG TABLET PO SCH ×2 (06:47→17:18)
[2017-09-03] MEDS: INSULIN ASPART 100 UNITS/ML SQ PRN ×2 (06:48→17:03)
[2017-09-03 06:53] LABS: GLUCOMETER DEV NAME(LOC) BV2N3; GLUCOSE,POINT OF CARE 171 MG/DL (70-110)
[2017-09-03 08:49] VITALS: BP 119/89
[2017-09-03] MEDS: NALTREXONE HCL 50 MG TABLET PO SCH (08:54)
[2017-09-03] MEDS: PANTOPRAZOLE SODIUM 40 MG DR TABLET PO SCH ×2 (08:54→17:13)
[2017-09-03] MEDS: MULTIVITAMINS WITH MINERALS, THERAPEUTIC TABLET PO SCH (08:54)
[2017-09-03] MEDS: AmLODIPine BESYLATE 10 MG TABLET PO SCH (08:54)
[2017-09-03] MEDS: FOLIC ACID 1 MG TABLET PO SCH (08:54)
[2017-09-03] MEDS: THIAMINE HCL 100 MG TABLET PO SCH ×2 (08:54→17:13)
[2017-09-03] MEDS: LinaGLIPtin 5 MG TABLET PO SCH (08:55)
[2017-09-03 14:17] LABS: GLUCOMETER DEV NAME(LOC) BV2N3; GLUCOSE,POINT OF CARE 115 MG/DL (70-110)
[2017-09-03 16:20] VITALS: BP 126/77
[2017-09-03 16:57] LABS: GLUCOMETER DEV NAME(LOC) BV2N3; GLUCOSE,POINT OF CARE 200 MG/DL (70-110)
[2017-09-03] MEDS: LORazepam 2 MG TABLET PO PRN (17:14)
[2017-09-03] MEDS: OLANZapine 10 MG RAPDIS TABLET PO SCH (21:53)
[2017-09-03] MEDS: DIVALPROEX SODIUM 500 MG ER TABLET PO SCH (21:53)
[2017-09-04 05:49] VITALS: BP 121/63
[2017-09-04] MEDS: MetFORMIN HCL 500 MG TABLET PO SCH (07:20)
[2017-09-04] MEDS: INSULIN ASPART 100 UNITS/ML SQ PRN ×2 (07:34→11:12)
[2017-09-04 08:08] LABS: GLUCOMETER DEV NAME(LOC) BV2N3; GLUCOSE,POINT OF CARE 176 MG/DL (70-110)
[2017-09-04 08:32] VITALS: BP 119/77
[2017-09-04] MEDS: AmLODIPine BESYLATE 10 MG TABLET PO SCH (08:52)
[2017-09-04] MEDS: MULTIVITAMINS WITH MINERALS, THERAPEUTIC TABLET PO SCH (08:54)
[2017-09-04] MEDS: PANTOPRAZOLE SODIUM 40 MG DR TABLET PO SCH (08:54)
[2017-09-04] MEDS: NALTREXONE HCL 50 MG TABLET PO SCH (08:54)
[2017-09-04] MEDS: LinaGLIPtin 5 MG TABLET PO SCH (08:54)
[2017-09-04] MEDS: THIAMINE HCL 100 MG TABLET PO SCH (08:54)
[2017-09-04] MEDS: FOLIC ACID 1 MG TABLET PO SCH (08:54)
[2017-09-04] MEDS: LORazepam 2 MG TABLET PO PRN (10:41)
[2017-09-04 10:58] LABS: GLUCOMETER DEV NAME(LOC) BV2N3; GLUCOSE,POINT OF CARE 154 MG/DL (70-110)
[2017-09-04] MEDS ORDERED: DIVA500T52 PO ×2 (14:54→15:58)
[2017-09-04] MEDS ORDERED: NALT50TA PO (14:54)
[2017-09-04] MEDS ORDERED: OLAN10TA22 PO (14:54)
[2017-09-04 16:32] VITALS: BP 121/65
[2017-09-04] MEDS ORDERED: DIVALPROEX SODIUM 500 MG ER TABLET PO SCH (21:00)
== END 2017-09-04 22:14 | disposition home or self-care (01) | DRG 885 ==
LOC: EMS 19:05 → B3A 20:45 → B2S 08-31 20:43
PROVIDERS: ADMIT Psychiatry & Neurology Psychiatry; ATTEND Psychiatry & Neurology Psychiatry
DX: F25.9 Schizoaffective disorder, unspecified (principal); D64.9 Anemia, unspecified; E11.9 Type 2 diabetes mellitus without complications; F15.90 Other stimulant use, unspecified, uncomplicated; F17.210 Nicotine dependence, cigarettes, uncomplicated; F31.9 Bipolar disorder, unspecified; F41.9 Anxiety disorder, unspecified; I10 Essential (primary) hypertension; K21.9 Gastro-esophageal reflux disease without esophagitis; Z82.5 Family history of asthma and other chronic lower respiratory diseases; Z83.3 Family history of diabetes mellitus; Z88.0 Allergy status to penicillin; Z91.19 Patient's noncompliance with other medical treatment and regimen
CPT/HCPCS: 82962; 83036; 84443; 87081; 99285; G0480

== ENCOUNTER 2019-05-24 16:54 | Emergency (ER) | payer MEDICARE, OTHER ==
[~2019-05-24] VITALS: Ht 177.8 cm; Wt 81.8 kg
[~2019-05-24 16:54] MED LIST changes: -AMLO-512 PO; +AMLO10TA7 PO; -LISI-660 PO; +METF-960 PO; -METF500T4 PO
[2019-05-24 17:50] LABS: GLUCOSE,POINT OF CARE 315 MG/DL (70-110)
[2019-05-24] MEDS ORDERED: BACITRACIN 0.9 GM PACKET OINTMENT TP ONE (18:00)
[2019-05-24] MEDS ORDERED: LIDOCAINE/PF 1% 5 ML VIAL INJ ONE (18:00)
[2019-05-24 18:59] VITALS: BP 158/77
== END 2019-05-24 19:14 | disposition home or self-care (01) ==
LOC: EMS 16:56
DX: S61.215A Laceration without foreign body of left ring finger without damage to nail, initial encounter (principal); S61.217A Laceration without foreign body of left little finger without damage to nail, initial encounter; F17.210 Nicotine dependence, cigarettes, uncomplicated; F31.9 Bipolar disorder, unspecified; E11.9 Type 2 diabetes mellitus without complications; K21.9 Gastro-esophageal reflux disease without esophagitis; Z79.84 Long term (current) use of oral hypoglycemic drugs; Z88.0 Allergy status to penicillin; W45.8XXA Other foreign body or object entering through skin, initial encounter; Y93.89 Activity, other specified; Y92.89 Other specified places as the place of occurrence of the external cause; Y99.8 Other external cause status
CPT/HCPCS: 12002; 82962; 99283; 99406; J2001

== ENCOUNTER 2023-02-26 18:18 | Emergency (ER) | payer MEDICARE, OTHER ==
[~2023-02-26] VITALS: Ht 177.8 cm; Wt 77.3 kg
[~2023-02-26 18:18] MED LIST changes: +AMLO-258 PO; -AMLO10TA7 PO; -DIVA500T52 PO; +DIVA500T53 PO; +METF-1211 PO; -METF-960 PO; +PANT-31 PO; -PANT40TA25 PO
[2023-02-26] MEDS ORDERED: SODIUM CHLORIDE 0.9% 1,000 ML IV ONE (19:15)
[2023-02-26 19:54] LABS: BASOPHILS % (AUTO) 0.4 % (0.0-2.0); HEMATOCRIT 36.8 % (41-53); HEMOGLOBIN 11.9 g/dL (13.5-17.5); LYMPHOCYTES # (AUTO) 1.8 K/uL (1.0-4.8); LYMPHOCYTES % (AUTO) 29.7 % (22.0-44.0); MEAN CORPUSCULAR HEMOGLOBIN 30.7 pg (26.0-34.0); MEAN CORPUSCULAR HGB CONC 32.5 G/dL (31.0-37.0); MEAN CORPUSCULAR VOLUME 94 fL (80-100); MONOCYTES # (AUTO) 0.7 K/uL (0.1-1.0); MONOCYTES % (AUTO) 10.8 % (2.0-9.0); NEUTROPHILS # (AUTO) 3.2 K/uL (1.8-7.7); NEUTROPHILS % (AUTO) 52.1 % (40.0-70.0); PLATELET COUNT (AUTO) 239 K/uL (150-450); RED BLOOD CELL COUNT(AUTO) 3.89 MIL/uL (4.50-5.90); RED CELL DISTRIBUTION WIDTH 14.2 % (11.5-14.5)
[2023-02-26 20:02] LABS: CALCIUM, TOTAL 8.7 mg/dL (8.8-10.5); CREATININE 1.29 mg/dL (0.60-1.30); POTASSIUM 4.1 mmol/L (3.5-5.1)
[2023-02-26 20:08] LABS: ALBUMIN 2.6 g/dL (3.4-5.0); BILIRUBIN,TOTAL 0.2 mg/dL (0.1-1.0); TOTAL PROTEIN, SERUM 6.2 g/dL (6.4-8.2)
[2023-02-26 22:23] VITALS: BP 119/71; PULSE 70; RESP 18; TEMP 97.3
== END 2023-02-26 22:30 | disposition home or self-care (01) ==
LOC: EMS 18:19
DX: S20.211A Contusion of right front wall of thorax, initial encounter (principal); E86.0 Dehydration; R10.11 Right upper quadrant pain; R53.1 Weakness; F31.9 Bipolar disorder, unspecified; E11.9 Type 2 diabetes mellitus without complications; F17.210 Nicotine dependence, cigarettes, uncomplicated; Z88.0 Allergy status to penicillin; X58.XXXA Exposure to other specified factors, initial encounter; Y93.89 Activity, other specified; Y92.89 Other specified places as the place of occurrence of the external cause; Y99.8 Other external cause status
CPT/HCPCS: 71101; 80053; 83690; 85025; 93005; 99285